=== PATIENT | male | born 1945 | race Caucasian/White ===

== ENCOUNTER → 2016-12-17 | Outpatient (CLI) | payer OTHER, BC ==
[~2016-12-17] MED LIST: AMLO-110 PO; ASPI81TA28 PO; BETAPOW NAE; CHOL100027 PO; CHOL200027 PO; CRS10 PEG; FENO1TAB PO; FURO-85 PO; HYT/2 PO; LEUP1INJ6 IM; METH500T3 PO; METO25TA56 PO; MULT-884 PO; OMEP20CA9 PO; TAMS0.4C38 PO; VITA400C15 PO
[2016-12-17 13:07] VITALS: BP 150/73; PULSE 51; TEMP 36.8; O2SAT 97
--- NOTE | 2016-12-17 16:56 | Radiation Oncology Follow-Up ---
Radiation Oncology Follow-Up Date of Visit Dec 17, 2016. Reason For Visit 6 month follow-up. Radiation Completion Date 11/16/15 Diagnosis (1) Prostate cancer Status: Resolved Onset Date: 07/26/2015 Location: both lobes of the prostate Histology Subtype: adenocarcinoma Stage: lll Permanent Comment: Rising PSA pre-pretreatment PSA 20 Status post ultrasound-guided biopsies completed 07/26/2015 Biopsy stage T2c Marti 5+5 Prostate Volume 28 mL Prostate density 0.714 Hormonal suppression for a total of 2 years Status post completion of radiation therapy utilizing IMRT/IGRT completed 2015 received 8100 cGy Last Edited By: Zaria Bonilla on Dec 17, 2016 16:42 History of Present Illness This is a 70-year-old gentleman with known aortic valvular disease. He is referred to us for discussion and consideration of radiation therapy for treatment of his apparently localized prostate cancer. The patient was noted to be having a rise in his PSA. His PSA had been rising and actually reasonable 14 in June. In view of his cardiac disease questions arose as to his optimal therapy. PSA was repeated as part of routine and had been found to have increased to 20 over one and a half months. With this in mind, the patient underwent ultrasound-guided biopsy of his prostate. That procedure returned prostate weighing 28.5 grams. There were multiple hypoechoic areas seen. Biopsies 6 from the right and 6 from the left were positive for adenocarcinoma consistent with a prostate primary. The patient though had a Marti 5+5 disease, found in some biopsies. This put him at high risk for local progression and metastasis. Coupled with his PSA arise, the patient's urologist felt he should be seen sooner rather than later with his disease. The patient underwent a workup that included a bone scan which was negative and an MRI of his pelvis that also was negative for metastatic disease. The MRI did not demonstrate extracapsular spread of his tumor. In talking with the patient, he had virtually noticed no symptoms from the disease. The patient has a longstanding history of nocturia 3-4 times a night. In reviewing his AUA score though it is 11. The patient is mostly satisfied in his lifestyle. He has had no blood in his urine, no burning or other symptoms locally. His bowels have been stable. The patient has also noted no new bone pain or other systemic manifestations of possible metastatic disease. Essentially, the patient is asymptomatic and was only alerted by his elevated PSA. With his cardiac issues he was not a surgical candidate. He was placed on hormone suppression due to the high [place]. He then returned to our office to undergo radiation therapy using external beam treatment. IMRT/IGRT. Interim History Following his last visit he did undergo cholecystectomy. He did well postoperatively. Steadily recovered from his surgery area he has had recheck PSAs ordered by Dr. Paz. He had a PSA 05/29/2016 that was 0.10. He had PSA 08/12/2016 that was less than 0.05. Since March he has developed intermittent rectal bleeding. This occurs approximately every 2 weeks. The amount is minimal and is bright red in color. When he was undergoing the cholecystectomy he had a CT of the abdomen area and he states he was told that he had radiation proctitis seen on the CT. He is being followed by [facility]. He has had a few follow-up visits. There is plans for a colonoscopy in the near future. He denies rectal pain or discomfort. He denies urgency. Today he completed an AUA score sheet and gave a level of 15. At his last visit the score was 11. He stated that the urinary symptoms had been higher and currently are improving. He completed expanded prostate cancer index composite for clinical practice and gave a score of 2 of 12 in urinary incontinence symptoms. He gave a score of one of 12 in urinary irritation symptoms. He gave a score of one of 12 in bowel symptoms. He gave a score of 10 of 12 in sexual symptoms. He gave a score of 5 of 12 in hormonal vitality symptoms. His total was 19 of 60. Allergies Coded Allergies: Amphotericin B (Verified Allergy, Unknown, DELIRIUM, 07/26/15) hallucinations,tremors,sweats Home Medications Scheduled Amlodipine (Norvasc), 10 MG PO DAILY Aspirin (Aspirin Ec), 81 MG PO DAILY Betamethasone Dipropionate (To (Betamethasone), 2 ML LISBETH BID Cholecalciferol (Vitamin D 1000 Unit), 1,000 INTER.UNIT PO DAILY Cholecalciferol (Vitamin D-3), 1 TAB PO DAILY Fenofibrate (Tricor), 160 MG PO DAILY Furosemide (Lasix), 20 MG PO DAILY Leuprolide Acetate (6 Month) (Lupron Depot), 1 APPLN IM [id number] Metoprolol Tartrate (Lopressor) (Lopressor), 12.5 MG PO DAILY Multiple Vitamin (Multi Vitamin Daily), 1 TAB PO DAILY Rosuvastatin Calcium (Crestor), 10 MG PEG HS Tamsulosin Hcl (Flomax), 1 CAP PO DAILY Terazosin Hcl (Hytrin), 2 MG PO DAILY Tocopheryl Acet,Dl-Alpha (Vitamin E), 400 INTER.UNIT PO DAILY Review of Systems Gastrointestinal: Symptoms: Rectal Bleeding GI Comments: States rectal bleeding is not all the time - every other week it happens Oral: Symptoms: No Problems Respiratory: Symptoms: WNL Urinary: Symptoms: Nocturia Comments: Nocturia x 4, freqency in AM due to lasix, see AUA & EPIC - symptoms better Skin: Symptoms: No Problems Physical Exam Vital Signs Date Time Temp Pulse Resp B/P Pulse Ox O2 Delivery O2 Flow Rate FiO2 12/17/16 13:07 36.8 51 16 150/73 97 Fatigue: None General Appearance: no apparent distress Eyes: normal inspection, PERRL ENT: normal ENT inspection, hearing grossly normal Neck: no adenopathy, thyroid normal Respiratory/Chest: lungs clear, no respiratory distress, no accessory muscle use Cardiovascular: regular rate, rhythm, no gallop, no murmur Abdomen: non tender, soft, no organomegaly Anal / Rectum: Deferred. Will be undergoing a colonoscopy. Extremities: no pedal edema Neurologic/Psychiatric: no motor/sensory deficits, alert, normal mood/affect Skin: warm/dry Lymphatic: no adenopathy Laboratory Studies PSAs as reviewed above. Assessment & Plan Plan: He will have a recheck PSA and office visit with Dr. Paz in February. He is being followed by [facility] and will be having a colonoscopy. We discussed radiation proctitis and options of treatment. At this time he feels that his bleeding is minimal. He does not wish to pursue any treatments such as cortisone enemas. I discussed that the leather sponger may discuss possible argon laser therapy. He was again stated that at this time he would not pursue any additional therapy. We discussed watching his diet to help keep his stool soft and prevent constipation. He did not wish to take any over-the- counter fiber product at this time. We did contemplate DEXA scanning had his last visit. I do not see that that was performed. We will call his primary care physician's office to see if he has had a DEXA scan in the past. If not we will plan to order a DEXA scan. Total Time In Follow-Up I spent 20 minutes to you to the patient performing examination. I spent 15 minutes reviewing information completing this note. Copy To Darius Lee D.O.; Bret Paz MD, Urology
== END | disposition home or self-care (01) ==
LOC: C.ONC 12:59
PROVIDERS: ATTEND Radiology Radiation Oncology
DX: Z08 Encounter for follow-up examination after completed treatment for malignant neoplasm (principal); Z92.3 Personal history of irradiation; Z85.46 Personal history of malignant neoplasm of prostate

== ENCOUNTER → 2017-11-17 | Outpatient (CLI) | payer OTHER, BC ==
[~2017-11-17] MED LIST changes: -METH500T3 PO; -OMEP20CA9 PO; +OPTIRAY 320 IV PRN
--- NOTE | 2017-11-17 10:40 | DIAGNOSTIC IMAGING REPORT ---
ABDOMEN AND PELVIS CT WITH IV CONTRAST CT DOSE: 799.70 mGy.cm HISTORY: C61 Neoplasm of prostate, malignant TECHNIQUE: Multiaxial CT images of the abdomen and pelvis were performed following the use of intravenous contrast. A dose lowering technique was utilized adhering to the principles of ALARA. COMPARISON STUDY: Pelvis MRI 08/10/2015. Bone scan 08/14/2015. FINDINGS: Mild dependent changes seen at the lung bases. Poststernotomy changes. There is a right total hip arthroplasty. No suspicious lytic or blastic osseous lesions. Degenerative changes seen within the lumbar spine. Small hiatus hernia. Cholecystectomy. The liver, spleen, left adrenal gland, and pancreas are unremarkable. Mild bilateral cortical renal scarring. No hydronephrosis. Calcifications within the right adrenal gland. No retroperitoneal lymphadenopathy. Moderate calcified plaque within the normal caliber abdominal aorta. Mild bladder wall thickening. No pelvic or inguinal lymphadenopathy. Mild thickening of the rectum. A few brachytherapy seeds seen within the prostate gland. Colonic diverticulosis. No evidence for bowel obstruction. Normal appendix. Incidental is made of a circumscribed 3 cm low-density lesion between the gastric fundus and the spleen. This is indeterminate but favors a cyst. IMPRESSION: 1. No evidence for metastatic disease within the abdomen or pelvis. 2. Mild thickening of the rectum consistent with a nonspecific proctitis. This could be due to post radiation changes. 3. There is also mild thickening of the bladder wall which could also be due to post radiation changes. 4. There is a 3 cm low-density lesion located between the gastric fundus and the spleen. This is indeterminate but favors a cyst and could represent a duplication cyst. Follow up is recommended to ensure stability of this suspected benign finding. Electronically signed by: Jacek Strange M.D. 11/17/2017 10:39 AM Dictated Date/Time: 11/17/2017 10:29 AM
--- NOTE | 2017-11-17 13:05 | DIAGNOSTIC IMAGING REPORT ---
BONE SCAN WHOLE BODY CLINICAL HISTORY: Prostate cancer. COMPARISON STUDY: Body bone scan August 14, [address] of the abdomen and pelvis performed earlier today. TECHNIQUE: 26.9 mCi of technetium 99m MDP was injected IV at 9:45 AM on November 17, 2017. 3 hours following injection, whole body imaging was performed in the anterior and posterior projections. FINDINGS: Expected soft tissue and renal uptake is present. A photopenic defect from a left knee arthroplasty is noted. Marked uptake within the right shoulder is unchanged and likely degenerative. A small focus of mild uptake within the left mid posterior aspect of the thoracic spine is unchanged. This is likely degenerative. Uptake within the wrists, hands, right knee and ankles as well as post is degenerative. Photopenic defect from a right hip arthroplasty is noted. Minimal uptake within the cervical spine is unchanged. This is degenerative. IMPRESSION: No scintigraphic evidence of skeletal metastatic disease. Electronically signed by: Delgado Baez M.D. 11/17/2017 1:04 PM Dictated Date/Time: 11/17/2017 12:58 PM
== END | disposition home or self-care (01) ==
LOC: C.NUCL 09:01
PROVIDERS: ATTEND Urology
DX: C61 Malignant neoplasm of prostate (principal)

== ENCOUNTER → 2017-12-18 | Outpatient (CLI) | payer OTHER, BC ==
[~2017-12-18] MED LIST changes: +CALCTAB7 PO; +FERR1TAB23 PO; -OPTIRAY 320 IV PRN; +PRAV20TA PO
[2017-12-18 12:59] VITALS: BP 131/79; PULSE 64; TEMP 36.7; O2SAT 94
--- NOTE | 2017-12-18 13:48 | Radiation Oncology Follow-Up ---
Radiation Oncology Follow-Up Date of Visit Dec 18, 2017. Reason For Visit Annual follow up Radiation Completion Date Hormonal suppression;IMRT 11/16/15 Diagnosis (1) Prostate cancer Status: Chronic Onset Date: 07/26/2015 Location: both lobes of the prostate Permanent Comment: Rising PSA pre-pretreatment PSA 20 Status post ultrasound-guided biopsies completed 07/26/2015 Biopsy stage T2c [place] 5+5 Prostate Volume 28 mL Prostate density 0.714 Hormonal suppression for a total of 2 years Status post completion of radiation therapy utilizing IMRT/IGRT completed 2015 received 8100 cGy Rising PSA, biochemical failure, PSA 10/13/2017 3.79 Hormone suppression restarted 10/22/2017 Lupron 45 mg IM Last Edited By: Zaria Bonilla on Dec 18, 2017 13:48 History of Present Illness This is a known to have aortic valvular disease. He is referred to us for discussion and consideration of radiation therapy for treatment of his apparently localized prostate cancer. The patient was noted to be having a rise in his PSA. His PSA had been rising and actually reasonable 14 in June. In view of his cardiac disease questions arose as to his optimal therapy. PSA was repeated as part of routine and had been found to have increased to 20 over one and a half months. With this in mind, the patient underwent ultrasound-guided biopsy of his prostate. That procedure returned prostate weighing 28.5 grams. There were multiple hypoechoic areas seen. Biopsies 6 from the right and 6 from the left were positive for adenocarcinoma consistent with a prostate primary. The patient though had a Marti 5+5 disease, found in some biopsies. This put him at high risk for local progression and metastasis. Coupled with his PSA arise, the patient's urologist felt he should be seen sooner rather than later with his disease. The patient underwent a workup that included a bone scan which was negative and an MRI of his pelvis that also was negative for metastatic disease. The MRI did not demonstrate extracapsular spread of his tumor. In talking with the patient, he had virtually noticed no symptoms from the disease. The patient has a longstanding history of nocturia 3-4 times a night. In reviewing his AUA score though it is 11. The patient is mostly satisfied in his lifestyle. He has had no blood in his urine, no burning or other symptoms locally. His bowels have been stable. The patient has also noted no new bone pain or other systemic manifestations of possible metastatic disease. Essentially, the patient is asymptomatic and was only alerted by his elevated PSA. With his cardiac issues he was not a surgical candidate. He was placed on hormone suppression due to the high [place]. He then returned to our office to undergo radiation therapy using external beam treatment. IMRT/IGRT. Radiation was completed 11/16/2015. He received 8100 cGy. He then went under replacement of the aortic valve. Interim History He has been followed with recheck PSAs. Unfortunately his PSA went up. He had a PSA 02/10/2017 that was less than 0.05. On 08/13/2017 the PSA was less than 0.05. On 10/13/2017 the PSA was 3.79. He was then placed on hormone suppression again. Lupron was given 10/22/2017. He received 45 mg. He stated that the suppression will be indefinite. After our last visit he did continue to have problems with rectal bleeding he was seen by [facility] physicians and was evaluated. He had a colonoscopy and then laser therapy. He only required one treatment. The bleeding has greatly improved and is occurring very rarely. With the Lupron therapy and he does have hot flashes once again. He unfortunately fell on 11/16/2017. He fell down 6 steps. He had a head injury. He is steadily recuperating. He is on iron therapy [place] [facility] [place] had a recheck PSA November 14, 2017 and that was less than 0.05. He gave an AUA score of 6. He completed expanded prostate cancer index composite for clinical practice and gave a score of one of 12 and urinary incontinence symptoms. He was score of 3 of 12 and urinary irritation symptoms. He was score of 0 of 12 and bowel symptoms. He gave a score of 11 of 12 in sexual symptoms. He gave a score of 4 of 12 and hormonal vitality symptoms. His total was 19 of 60. Allergies Coded Allergies: Amphotericin B (Verified Allergy, Unknown, DELIRIUM, 07/26/15) hallucinations,tremors,sweats Home Medications Scheduled Amlodipine (Norvasc), 10 MG PO DAILY Aspirin (Aspirin Ec), 81 MG PO DAILY Betamethasone Dipropionate (To (Betamethasone), 2 ML LISBETH BID Calcium Carbonate-Vitamin D W/ (Caltrate 600 Plus), 1 TAB PO DAILY Cholecalciferol (Vitamin D-3), 1 TAB PO DAILY Ferrous Sulfate (Iron), 1 TAB PO DAILY Furosemide (Lasix), 20 MG PO DAILY Leuprolide Acetate (6 Month) (Lupron Depot), 1 APPLN IM [id number] Multiple Vitamin (Multi Vitamin Daily), 1 TAB PO DAILY Pravastatin (Pravachol ), 20 MG PO DAILY Tamsulosin Hcl (Flomax), 1 CAP PO DAILY Terazosin Hcl (Hytrin), 2 MG PO DAILY Tocopheryl Acet,Dl-Alpha (Vitamin E), 400 INTER.UNIT PO DAILY Review of Systems Gastrointestinal: Symptoms: WNL GI Comments: Had laser for radiation proctitis w/improvement of rectal spotting; Oral: Symptoms: No Problems Respiratory: Symptoms: WNL Urinary: Symptoms: Nocturia, Frequency Comments: Q2 hr voids/night- not new w/RT;4 voids/night;Dribbles at end of void; Skin: Symptoms: No Problems Physical Exam Vital Signs Date Time Temp Pulse Resp B/P (MAP) Pulse Ox O2 Delivery O2 Flow Rate FiO2 12/18/17 12:59 36.7 64 20 131/79 94 Fatigue: None General Appearance: no apparent distress, + pertinent finding (mild erythema of the right frontal scalp. Healed laceration of the right eyebrow.) Eyes: normal inspection, EOMI ENT: normal ENT inspection, hearing grossly normal Neck: no adenopathy, thyroid normal Respiratory/Chest: lungs clear, no respiratory distress, no accessory muscle use Cardiovascular: regular rate, rhythm, no gallop, no murmur Abdomen: non tender, soft, no organomegaly Anal / Rectum: Normal sphincter tone. Prostate without nodules. No rectal masses no rectal bleeding. Dark stool due to iron therapy. Extremities: no pedal edema Neurologic/Psychiatric: no motor/sensory deficits, alert, normal mood/affect Skin: warm/dry Pain Management Patient Reports Pain: Yes Initial Pain Intensity: 2.0 Pain Management Plan He is recuperating from head injury. He does not require any pain management through our office. Laboratory Laboratory Results: were reviewed, and pertinent findings noted in HPI Laboratory Comments: Reviewed in the interim history. Pathology Pathology Results: not applicable Imaging Imaging Studies: not applicable Assessment & Plan Plan: Continue follow-up PSAs. He'll be having a recheck PSA in February. He has a follow-up we will with Dr. Paz. He'll continue hormonal suppression. We asked him to return to our office in 1 year. He may call if he has been question or concerns in the interim. Total Time In Follow-Up I spent 20 minutes speaking to the patient and performing examination. I spent 15 minutes reviewing information in completing this note. Copy To Darius Lee D.O.; Bret Paz MD, Urology
== END | disposition home or self-care (01) ==
LOC: C.ONC 12:51
PROVIDERS: ATTEND Physician Assistant Medical
DX: Z08 Encounter for follow-up examination after completed treatment for malignant neoplasm (principal); Z92.3 Personal history of irradiation; Z85.46 Personal history of malignant neoplasm of prostate

== ENCOUNTER 2020-12-15 08:03 | Inpatient (IN) ==
--- NOTE | 2020-11-21 11:22 | PAT Medication Instructions ---
Medication Instructions Date of Service November 21, 2020 Home Medications amlodipine 10 mg tablet 10 mg PO QAM aspirin 81 mg tablet,delayed release 81 mg PO QAM calcium carbonate 600 mg calcium (1,500 mg) tablet 600 mg PO QPM cholecalciferol (vitamin D3) 50 mcg (2,000 unit) tablet 2,000 units PO QAM ferrous sulfate 325 mg (65 mg iron) tablet 325 mg PO QAM furosemide 20 mg tablet 20 mg PO QAM multivitamin 1 tab PO QAM pravastatin 20 mg tablet 20 mg PO QPM terazosin 2 mg tablet 2 mg PO QPM vitamin E (dl, acetate) 400 unit capsule 400 units PO QPM tamsulosin 0.4 mg PO PM STOP taking 2 weeks before surgery vitamin E (dl, acetate) 400 unit capsule 400 units PO QPM DO NOT take the morning of surgery cholecalciferol (vitamin D3) 50 mcg (2,000 unit) tablet 2,000 units PO QAM ferrous sulfate 325 mg (65 mg iron) tablet 325 mg PO QAM furosemide 20 mg tablet 20 mg PO QAM multivitamin 1 tab PO QAM Take morning of surgery With a small sip of water, OTHERWISE NOTHING TO EAT OR DRINK AFTER MIDNIGHT: amlodipine 10 mg tablet 10 mg PO QAM aspirin 81 mg tablet,delayed release 81 mg PO QAM Take evening before surgery calcium carbonate 600 mg calcium (1,500 mg) tablet 600 mg PO QPM pravastatin 20 mg tablet 20 mg PO QPM terazosin 2 mg tablet 2 mg PO QPM tamsulosin 0.4 mg PO PM Other Notes If you have any questions please call us at [phone] or [phone] or [phone] or [phone]
--- NOTE | 2020-11-23 14:09 | Anesthesiology Consultation ---
Date of Service November 23, 2020 Assessment & Plan (1) Encounter for pre-operative examination: Chart Review Chart Review: Pending: Refer to Additional Notes / Consult section (pending surgeon ordered cardio clearance 11/28 and preop Covid testing ) and Patient seen in Pre Admission Testing Awaiting surgeon cardio clearance scheduled 11/28 - sent EKG for review. Pt received Moderna vaccine on 11/17/20. Scheduled for second vaccine after surgery. Per PAT appt on 11/23/20, patient denies any recent travel. No known Covid positive contacts or Covid related symptoms. Pt scheduled for preop Covid testing 12/08/20= will await results Teaching & Discussion Pre-Anesthesia Teaching/Discussion Notes: Instructed NPO after midnight before surgery,except medications with 15 cc of water. Medication instructions provided according to the PAT guidelines. History Surgery Operation Date: 12/15/20 10:05 Proposed Procedures p Posterior Fusion Instrumentation Spinal Cord Monitoring - Mohsen Quesada DO Height/Weight Height: 5 ft 2 in Weight: 81.1 kg Allergies Allergy/AdvReac Type Severity Reaction Status Date / Time amphotericin B Allergy Unknown DELIRIUM Verified 10/30/20 13:18 metoprolol AdvReac Intermediate Dizziness Verified 10/30/20 13:19 Medications Home Medications Medication Instructions Recorded Confirmed Last Taken amlodipine 10 mg tablet 10 mg PO QAM 12/21/19 10/30/20 06/09/20 aspirin 81 mg tablet,delayed 81 mg PO QAM 12/21/19 10/30/20 06/09/20 release calcium carbonate 600 mg calcium 600 mg PO QPM 12/21/19 10/30/20 Unknown (1,500 mg) tablet cholecalciferol (vitamin D3) 50 2,000 units PO QAM tab 12/21/19 10/30/20 06/09/20 mcg (2,000 unit) tablet ferrous sulfate 325 mg (65 mg 325 mg PO QAM tab 12/21/19 10/30/20 06/09/20 iron) tablet furosemide 20 mg tablet 20 mg PO QAM tab 12/21/19 10/30/20 06/09/20 multivitamin 1 tab PO QAM 12/21/19 10/30/20 06/09/20 pravastatin 20 mg tablet 20 mg PO QPM tab 12/21/19 10/30/20 Unknown terazosin 2 mg tablet 2 mg PO QPM tab 12/21/19 10/30/20 Unknown vitamin E (dl, acetate) 400 unit 400 units PO QPM 12/21/19 10/30/20 Unknown capsule tamsulosin 0.4 mg PO PM 10/30/20 10/30/20 Unknown Past Medical History Medical History (Updated 11/24/20 @ 14:24 by Natividad Garibay PA-C) Aortic stenosis S/p valve replacement- bovine heart valve- 2015. [facility] CAD (coronary artery disease) 2018 cath shows 40% mid LAD stenosis, 60% stenosis of D1 and ostial dominant Cx Hyperlipidemia Hypertension Lyme disease 2016- no residual issues Nausea and vomiting after administration of anesthetic agent Nocturia Osteoporosis Prostate CA Dx'ed 2014. S/p XRT and Lupron injections - no current issues Radiation proctitis Slow to wake up after anesthesia Slowing of urinary stream Stage 3 chronic kidney disease follows Dr. Lemons of [facility] Exercise / Class Metabolic Activity III < 4 Walking/Shop/Light housework (no chest pain or SOB with flat surface ambulation - limited activity due to LE issues from back pain ) Past Family History Family History Mother Cardiac disorder Diabetes Hypertension Father Cancer Malignant neoplasm of the esophagus Other No family history of adverse response to anesthesia No family history of bleeding disorder Past Surgical History Surgical History History of aortic valve replacement 2016 > [facility] (cow valve) History of cardiac cath several > [facility] no stents History of carpal tunnel release of both wrists History of cholecystectomy History of colonoscopy History of esophagogastroduodenoscopy (EGD) History of hip replacement right History of knee replacement left History of renal stent present History of sinus surgery History of tonsillectomy History of tooth extraction Past Anesthesia History No Hx of Anesthesia Complications (with exception to PONV and slow to wake (no hx of reintubation or ICU stay- just groggy) ) and No Family Hx of Anesthesia C omplications (with exception to sister- slow to wake- just groggy ) History of PONV No Hx of Motion Sickness and History of PONV Social History Smoking Status: Never smoker Do You Dip or Chew Tobacco: No Hx Alcohol Use: No Hx Substance Use: No substance use type: does not use Review of Systems Hx of possible DVT 1978- no issues since Hx of blood transfusion- s/p surgery Patient denies chest pain, shortness of breath at rest, reflux, cough, wheezing, palpitations. No hx of seizures, stroke, ND, apnea/snoring. Physical Exam Vital Signs VITALS BP 154/74 P 53 TEMP 97.6 SP02 98% RESP 16 Constitutional no acute distress ENMT Mouth: + small oral opening; no TMJ clicking Thyromental Distance: > or= 3.5 Finger Breadths (3.5) Mallampati Class: III Partial upper denture Missing bottom molars Neck + short neck and + limited neck extension (mild) Respiratory normal respiratory effort; no respiratory distress Auscultation: lungs clear to auscultation bilaterally; no wheezes Cardiovascular Rate/Rhythm: regular rate and regular rhythm Heart Sounds: + murmur (II-III/ murmur ) Vessels: + carotid bruit (presumed radiation from cardiac murmur ) Musculoskeletal Spine: no pain with cervical ROM Extremities: extremities normal to inspection Psychiatric Orientation: alert Testing Laboratory Results 11/23/20 14:56 11/23/20 14:56 PT 10.9 Seconds (9.0-12.0) 11/23/20 14:56 INR 1.0 (0.9-1.1) 11/23/20 14:56 APTT 27.3 Seconds (21.0-31.0) 11/23/20 14:56 Urine Color Yellow 11/23/20 Unknown Urine Appearance Clear (Clear) 11/23/20 Unknown Urine pH 5.0 (4.5-7.5) 11/23/20 Unknown Ur Specific [place] 1.012 (1.000-1.030) 11/23/20 Unknown Urine Protein Negative (Negative) 11/23/20 Unknown Urine Glucose (UA) Negative (Negative) 11/23/20 Unknown Urine Ketones Negative (Negative) 11/23/20 Unknown Urine Nitrite Negative (Negative) 11/23/20 Unknown Ur Leukocyte Esterase Negative (Negative) 11/23/20 Unknown Blood Type O Positive 11/23/20 14:56 Antibody Screen NEGATIVE 01/14/21 14:56 Electrocardiogram Date: 11/23/20 Findings: + SB @ (49bpm) PACs. ST&T wave abnormality, consider lateral ischemia. When compared to EKG from Jul 26, 2015= ST no longer elevated in anterior leads, QT has shortened per cardio. (Did send EKG for cardio to review at clearance appt 11/28/20) Chest X-Ray Date: 11/23/20 Findings: + NAD and + cardiomegaly (moderate ) Minimal linear left basilar opacity favors atelectasis. There is no consolidation. No pneumothorax or pleural effusion is noted. There is been no significant change in appearance of the chest. Echocardiogram Date: 03/30/19 EF: 60% LV Function: normal RWMA: + none Other Findings: + LVH (Concentric) and + diastolic dysfunction (Grade 2) Valvular Disease: + MR (Mild) Moderately dilated left atrium. Bioprosthetic aortic valve. Bioprosthesis shows peak and mean gradients of 34 mmHg and 17mmHg, with an EOA of 0.89 cm, consistent with normal bioprosthetic AVR gradients. Mild AR. Mildly dilated aortic root (4.1 cm) and ascending aorta (4.0 cm). Cardiac Catheterization Date: 05/07/19 Left Main = angiographically normal LAD =40% mid stenosis. First diagonal has 60% ostial stenosis. The rest of the vessel is angiographically normal LCx= 60% prox stenosis RCA= severe tortuosity- appears to be small nondominant vessel. Summary: Angiographically moderate two-vessel occlusive coronary disease. Normal size aortic root. No significant AR. Given present coronary anatomy patient should be managed medically aggressive risk factor modification should be maintained in close, follow-up should be done.
--- NOTE | 2020-11-23 15:25 | XRay Report ---
XR chest Pre-admission PA/Lat CLINICAL HISTORY: Preoperative evaluation. COMPARISON STUDY: Chest radiograph July 26, 2015. FINDINGS: Median sternotomy wires, prosthetic aortic valve and and cholecystectomy clips are noted. T here is no pneumothorax or pleural effusion. Moderate cardiac megaly is noted without evidence for pu lmonary edema. Minimal linear left basilar opacity favors atelectasis. There is no consolidation. No pneumothorax or pleural effusion is noted. There is been no significant change in appearance of the c hest. IMPRESSION: No acute cardiopulmonary findings. Cardiomegaly. ACT 112: Negative or not required by law. Electronically signed by: Delgado Baez M.D. 11/23/2020 3:23 PM
[2020-11-23 15:34] LABS: Basophils # (auto) 0.03 K/uL (0-0.2); Basophils % (auto) 0.6 %; Eosinophils # (auto) 0.17 K/uL (0-0.5); Eosinophils % (auto) 3.2 %; Hematocrit (blood only) 33.8 % (42-52); Hemoglobin 11.1 g/dL (14.0-18.0); Immature Granulocytes # (auto) 0.01 K/uL (0.00-0.02); Immature Granulocytes % (auto) 0.2 %; Lymphocytes # (auto) 0.92 K/uL (1.2-3.4); Lymphocytes % (auto) 17.5 %; Mean Corpuscular Hemoglobin 30.3 pg (25-34); Mean Corpuscular Hgb Conc 32.8 g/dL (32-36); Mean Corpuscular Volume 92.3 fL (80-100); Mean Platelet Volume 11.2 fL (7.4-10.4); Monocytes # (auto) 0.55 K/uL (0.11-0.59); Monocytes % (auto) 10.5 %; Neutrophils # (auto) 3.58 K/uL (1.4-6.5); Platelet Count 210 K/uL (130-400); RDW Standard Deviation 43.6 fL (36.4-46.3); Red Blood Count 3.66 M/uL (4.7-6.1); White Blood Count 5.26 K/uL (4.8-10.8)
[2020-11-23 15:35] LABS: Appearance Urine Clear (Clear); Bilirubin Urine Negative (Negative); Blood Urine Negative (Negative); Color Urine Yellow; Glucose Urine UA Negative (Negative); Ketones Urine Negative (Negative); Leukocyte Esterase Urine Negative (Negative); Nitrite Urine Negative (Negative); Protein Urine Negative (Negative); Specific Gravity Urine 1.012 (1.000-1.030); Urobilinogen Urine Negative (Negative)
[2020-11-23 15:46] LABS: BUN Creatinine Ratio 21.9 (10-20); Calcium 9.1 mg/dl (8.5-10.1); Creatinine Clr Calc Pharmacy 40.2 ml/min; Est GFR (African American) 54.3; Est GFR (Non-African American) 46.8; Potassium 4.1 mmol/L (3.5-5.1)
[2020-11-23 15:58] LABS: Partial Thromboplastin Time 27.3 Seconds (21.0-31.0); Prothrombin Time 10.9 Seconds (9.0-12.0)
--- NOTE | 2020-11-24 13:47 | Electrocardiogram Report ---
Test Reason : Blood Pressure : / mmHG Vent. Rate : 049 BPM Atrial Rate : 042 BPM P-R Int : 000 ms QRS Dur : 088 ms QT Int : 414 ms P-R-T Axes : 000 074 -20 degrees QTc Int : 373 ms Sinus bradycardia Premature atrial complexes Abnormal ECG When compared with ECG of 26-JUL-2015 16:02, ST no longer elevated in Anterior leads QT has shortened Confirmed by Chuck Rangel ([id number]) on 11/24/2020 1:46:46 PM Referred By: Mohsen Quesada Confirmed By:Chuck Rangel
[~2020-12-15 08:03] MED LIST changes: +ACETAMINOPHEN 500 MG TAB PO SCH; -AMLO-110 PO; -ASPI81TA28 PO; -BETAPOW NAE; -CALCTAB7 PO; -CHOL100027 PO; -CHOL200027 PO; -CRS10 PEG; +CeleBREX 200 MG CAP PO SCH; -FENO1TAB PO; -FERR1TAB23 PO; -FURO-85 PO; +GABAPENTIN 300 MG CAP PO SCH; -HYT/2 PO; -LEUP1INJ6 IM; +LR 15ML/HR IV SCH; -METO25TA56 PO; -MULT-884 PO; -PRAV20TA PO; -TAMS0.4C38 PO; -VITA400C15 PO; +ceFAZolin 2000MG 2,000 MG/15 ML SYR IV SCH
[2020-12-15] MEDS ORDERED: PROPOFOL IV EMULSION 10 MG/ML 20 ML VIAL IV ONE (08:16)
[2020-12-15] MEDS ORDERED: LIDOCAINE HCL 2% 2 ML VIAL/AMP(20MG/ML) INFIL ONE (08:16)
[2020-12-15] MEDS ORDERED: SUCCINYLCHOLINE CHLORIDE 20 MG/ML 10 ML VIAL IV ONE (08:16)
[2020-12-15] MEDS ORDERED: ROCURONIUM BROMIDE 10 MG/ML 5 ML VIAL IV ONE (08:16)
[2020-12-15] MEDS ORDERED: fentaNYL citrate 100 MCG/2 ML VIAL ONE (08:16)
[2020-12-15] MEDS ORDERED: ONDANSETRON INJ 2 MG/ML 2 ML VIAL ONE (08:16)
[2020-12-15] MEDS ORDERED: MIDAZOLAM HCL 1 MG/ML 2ML VIAL ONE (08:17)
--- NOTE | 2020-12-15 09:25 | History & Physical Bridge Note ---
Date of Service December 15, 2020 History & Physical Bridge Note I have examined the patient, reviewed the History & Physical and in the interval since the performance of the History & Physical I have noted the following changes of clinical significance: no changes noted
--- NOTE | 2020-12-15 09:26 | History & Physical Report ---
Date of Service December 15, 2020 Assessment & Plan (1) Neurogenic claudication due to lumbar spinal stenosis: Admission and Anticipated Discharge Date Admission Date: L2-S1 decompression fusion History of Present Illness Chief Complaint: Back and bilateral leg pain Primary Care Provider: Darius Lee DO This is a 75-year-old male presents with chronic persistent back and leg pain. After failing course of nonoperative care is here for surgical invention. Allergies Allergy/AdvReac Type Severity Reaction Status Date / Time amphotericin B Allergy Unknown DELIRIUM Verified 12/15/20 08:27 metoprolol AdvReac Intermediate Dizziness Verified 12/15/20 08:27 Home Medications Medication Instructions Recorded Confirmed Type amlodipine 10 mg tablet 10 mg PO QAM 12/21/19 10/30/20 History aspirin 81 mg tablet,delayed 81 mg PO QAM 12/21/19 10/30/20 History release calcium carbonate 600 mg calcium 600 mg PO QPM 12/21/19 12/15/20 History (1,500 mg) tablet cholecalciferol (vitamin D3) 50 2,000 units PO QAM tab 12/21/19 12/15/20 History mcg (2,000 unit) tablet ferrous sulfate 325 mg (65 mg 325 mg PO QAM tab 12/21/19 12/15/20 History iron) tablet furosemide 20 mg tablet 20 mg PO QAM tab 12/21/19 12/15/20 History multivitamin 1 tab PO QAM 12/21/19 12/15/20 History pravastatin 20 mg tablet 20 mg PO QPM tab 12/21/19 12/15/20 History terazosin 2 mg tablet 2 mg PO QPM tab 12/21/19 12/15/20 History vitamin E (dl, acetate) 400 unit 400 units PO QPM 12/21/19 12/15/20 History capsule tamsulosin 0.4 mg PO PM 10/30/20 12/15/20 History Past Med/Surg History Medical History (Updated 12/15/20 @ 09:26 by Mohsen Quesada DO) Aortic stenosis S/p valve replacement- bovine heart valve- 2015. Follows with Dr. Al of [facility] CAD (coronary artery disease) 2018 cath shows 40% mid LAD stenosis, 60% stenosis of D1 and ostial dominant Cx Diabetes Type II- diet controlled per records Hyperlipidemia Hypertension Lyme disease 2016- no residual issues Nocturia Osteoporosis Prostate CA Dx'ed 2014. S/p XRT and Lupron injections - no current issues Radiation proctitis Slowing of urinary stream Stage 3 chronic kidney disease follows Dr. Lemons of [facility] Surgical History History of aortic valve replacement 2016 > [facility] (cow valve) History of cardiac cath several > last one 2 yrs ago at [facility]> no stents History of carpal tunnel release of both wrists History of cholecystectomy History of colonoscopy History of esophagogastroduodenoscopy (EGD) History of hip replacement right History of knee replacement left History of renal stent present History of sinus surgery History of tonsillectomy History of tooth extraction Nausea and vomiting after administration of anesthetic agent Slow to wake up after anesthesia Family History Mother Cardiac disorder Diabetes Hypertension Father Cancer Malignant neoplasm of the esophagus Other No family history of adverse response to anesthesia No family history of bleeding disorder Social History Smoking Status: Never smoker Second Hand Exposure: No; Do You Dip or Chew Tobacco: No; Tobacco Cessation Education Requested by Patient: No Hx Alcohol Use: No Hx Substance Use: No Preferred Language: Nigerien Communication Ability: Effective Vegetable Sorter Required: No Beliefs That Will Affect Care: None marital status: Current Living Situation: Spouse Other Information That Helps Us Care for You: No Feels Safe at Home: Yes Safety Concerns: Feels Safe At This Time Assistive Devices: Cane and Denture - Upper Assistive Devices Comment: UPPER PARTIAL Physical Exam Physical Exam: Patient is alert and oriented Heart regular rate and rhythm Lungs clear to auscultation Results & Data ([facility]) Vital Signs (Past 12 Hours) Vital Signs Temp Pulse Resp BP Pulse Ox 12/15/20 08:40 36.6 C 56 L 20 183/79 H 99
[2020-12-15] MEDS ORDERED: BACITRACIN INJ 50,000 UNIT VIAL ONE (09:40)
[2020-12-15] MEDS ORDERED: BUPIVACAINE/EPINEPHRINE 0.5% MPF 1:200,000 30 ML VIAL ONE (09:40)
[2020-12-15] MEDS ORDERED: NALOXONE HCL 0.4 MG/1 ML VIAL/CARP IV PRN ×2 (10:15→15:37)
[2020-12-15] MEDS ORDERED: ONDANSETRON INJ 2 MG/ML 2 ML VIAL IV PRN (10:15)
[2020-12-15] MEDS ORDERED: FLUMAZENIL 0.1 MG/1 ML 10 ML VIAL IV PRN (10:15)
[2020-12-15] MEDS ORDERED: ePHEDrine sulfate 50 MG/ML AMP IV PRN (10:15)
[2020-12-15] MEDS ORDERED: PROMETHAZINE HCL 12.5 MG in SODIUM CHLORIDE 0.9% 50 ML IV PRN ×2 (10:15→15:37)
[2020-12-15] MEDS ORDERED: HYDROmorphone INJ 0.5 MG/0.5 ML SYR IV PRN ×2 (10:15→15:37)
[2020-12-15] MEDS ORDERED: fentaNYL citrate 100 MCG/2 ML VIAL IV PRN (10:15)
[2020-12-15] MEDS ORDERED: ATROPINE SULFATE 0.1 MG/ML 10ML SYR IV PRN (10:15)
[2020-12-15] MEDS ORDERED: LABETALOL HCL IV 5 MG/ML 20ML IV PRN (10:15)
[2020-12-15] MEDS ORDERED: ePHEDrine sulfate 50 MG/ML AMP ONE (10:38)
[2020-12-15] MEDS ORDERED: GLYCOPYRROLATE 0.2 MG/ML VIAL ONE (10:38)
[2020-12-15] MEDS ORDERED: PHENYLEPHRINE HCL 10 MG/ML VIAL ONE (10:38)
[2020-12-15] MEDS ORDERED: PHENYLEPHRINE 100MCG/ML 5ML SYR ONE ×2 (10:38→14:36)
[2020-12-15] MEDS ORDERED: FLOSEAL HEMOSTATIC MATRIX 10ML TOP ONE (12:16)
--- NOTE | 2020-12-15 12:28 | Operative Report ---
Post Operative Report Pre & Post Diagnosis Operation Date: 12/15/20 09:35 Pre-Op Diagnosis: Spinal Stenosis, Lumbar Region with Neurogenic Post-Op Diagnosis: Spinal Stenosis, Lumbar Region with Neurogenic Operation Date: 12/15/20 10:05 <No data on this case meets the specified criteria> I identified the patient and participated in the time-out.: Yes Procedure Operation Date: 12/15/20 09:35 Actual Procedures #1 lumbar decompression with bilateral medial facetectomies and foraminotomies L2-3, L3-4, L4-5 and L5-S1 peer #2 posterior spinal fusion L2-3, L3-4, L4-5 and L5-S1. #3 placement posterior segmental instrumentation L2-S1. #4 placement locally harvested morselized autograft in the posterior lateral gutters. #5 placement infuse collagen sponge, master graft in the posterior lateral gutters. Surgeon Mohsen Quesada, Clinical Dental Technician Tj Barone Estimated Blood Loss 400 Findings See Below Patient is 5 foot 2 inches tall weighing over 81 kg with a BMI in excess of 32. The patient's body habitus did add increased technical difficulty requiring her deepest retractors longus instruments in order to perform his procedure. This at least 50% increase to the operative time. Specimens None Indications This is a 75-year-old male who presents above-mentioned diagnosis after failing course of nonoperative care is here for the above-mentioned procedure. Description of Procedure Patient was met with identified informed consent obtained. Patient was then taken to the operative suite underwent a patient placed in a prone position the Abilio table atop Camron frame. All bony prominences well-padded eyes inspected to ensure no external pressure placed upon the. This point the lumbar spine is prepped and draped in a sterile fashion. Sharp dissection with the assistance of Bovie cautery was performed down to and exposing the lamina and transverse processes of L2-L3-L4 L5 and sacral ala bilaterally. From caudal cephalad fashion complete laminectomy of L5 L4 L3 and L2 was performed including bilateral medial facetectomies and foraminotomies addressing severe spinal stenosis. Pedicle screws were then placed in L2 L3-L4-L5 and S1 levels bilaterally with assistance of fluoroscopy and the process karrie locked in position. The transverse processes of L2 L3-L4-L5 and sacral ala were then burred to subcortical bleeding bone. Infuse collagen sponge mass graft local autograft was placed in the posterior gutters. 15 round ELTON drain inserted. The incision was then closed with 1 Vicryl to fascia 2-0 Vicryl subcutaneously and 4 Monocryl for final skin closure. Steri-Strip sterile dressings placed. Patient will continue PACU stable condition. Please note spinal cord monitoring was utilized at the procedure no changes noted. Lastly Tj Barone was present at the entire procedure involved the patient positioning complex portions of the surgery and final skin closure. I attest to the content of the Intraoperative Record and any orders documented therein. Any exceptions are noted below.
--- NOTE | 2020-12-15 13:03 | Fluoroscopy Report ---
FL lumbar spine 2-3V HISTORY: 75 years-old Male L2-S1 DECOMPRESSION/FUSION/INTERBODY chronic low back pain COMPARISON: Lumbar spine radiographs 06/09/2020 TECHNIQUE: 4 spot fluoroscopic images of the lumbar spine were obtained utilizing 45.9 seconds fluoro scopy time FINDINGS: Laminectomy with posterior interbody karrie and screw fusion at L2-S1. The hardware appears intact. Sati sfactory alignment without acute fracture or subluxation. Multilevel disc space narrowing with spondy litic spurring and facet arthrosis redemonstrated. No unexpected opaque foreign body. Right hip total joint arthroplasty. IMPRESSION: Fluoroscopic assistance as above. ACT 112: Negative or not required by law. The above report was generated using voice recognition software. It may contain grammatical, syntax o r spelling errors. Electronically signed by: Evin Mcdaniel M.D. 12/15/2020 1:01 PM
[2020-12-15 13:21] LABS: Hematocrit (blood only) 26.6 % (42-52)
[2020-12-15] MEDS ORDERED: ALBUMIN HUMAN 5% 12.5 GM/250 ML VIAL IV ONE (14:22)
[2020-12-15] MEDS ORDERED: ALBUMIN 5% 250 ML IV ONE ×2 (14:33→15:03)
[2020-12-15] MEDS ORDERED: PHENYLEPHRINE 100MCG/ML 5ML SYR IV PRN (14:34)
--- NOTE | 2020-12-15 15:17 | Anesthesiology Progress Note ---
Date of Service December 15, 2020 Anesthesia Post Procedure Vital Signs Vital Signs: Temp Pulse Pulse Resp BP BP BP 12/15/20 15:10 55 L 17 111/48 L 12/15/20 15:00 55 L 15 114/47 L 106/48 L 12/15/20 14:50 53 L 15 103/47 L 102/48 L 12/15/20 14:40 52 L 15 105/47 L 12/15/20 14:30 51 L 15 101/48 L 95/54 L 12/15/20 14:20 50 L 12 93/46 L 89/50 L 12/15/20 14:10 51 L 14 84/42 L 83/46 L 12/15/20 14:00 49 L 12 112/52 L 105/49 L 12/15/20 13:50 50 L 16 121/53 L 121/61 12/15/20 13:40 52 L 12 120/54 L 135/62 12/15/20 13:30 54 L 11 L 100/46 L 99/59 L 12/15/20 13:20 55 L 10 L 109/50 L 109/54 L 12/15/20 13:10 57 L 11 L 111/56 L 106/52 L 12/15/20 13:07 58 L 15 115/54 L 12/15/20 13:05 58 L 11 L 12/15/20 12:55 36.1 C L 66 11 L 65/39 L 12/15/20 08:40 36.6 C 56 L 20 183/79 H Pulse Ox 12/15/20 15:10 92 12/15/20 15:00 91 12/15/20 14:50 93 12/15/20 14:40 93 12/15/20 14:30 98 12/15/20 14:20 87 L 12/15/20 14:10 100 12/15/20 14:00 93 12/15/20 13:50 100 12/15/20 13:40 100 12/15/20 13:30 100 12/15/20 13:20 100 12/15/20 13:10 100 12/15/20 13:07 100 12/15/20 13:05 100 12/15/20 12:55 100 12/15/20 08:40 99 Pain Intensity Lower Back: Pain Intensity: 4 Transfer of Care Handoff Completed per policy Notes Mental Status: alert / awake / arousable Patient Amnestic to Procedure: Yes Nausea / Vomiting: adequately controlled Pain: adequately controlled Airway Patency, RR, SpO2: stable & adequate BP & HR: stable & adequate Hydration State: stable & adequate Anesthetic Complications: no major complications apparent
[2020-12-15] MEDS ORDERED: traMADol HCL 50 MG TABLET PO PRN (15:37)
[2020-12-15] MEDS ORDERED: DO NOT ADMINISTER FLU VACCINE PRN (15:37)
[2020-12-15] MEDS ORDERED: MAGNESIUM HYDROXIDE SUSP 30 ML UDC PO PRN (15:37)
[2020-12-15] MEDS ORDERED: hydrOXYzine HCl 25 MG TAB PO PRN (15:37)
[2020-12-15] MEDS ORDERED: SOD PHOSPHATE/SOD BIPHOSPHATE ENEMA 132 ML BTL PR PRN (15:37)
[2020-12-15] MEDS ORDERED: ALUMINUM/MAGNESIUM SUSP 30 ML UDC PO PRN (15:37)
[2020-12-15] MEDS ORDERED: METOCLOPRAMIDE HCL INJ 5 MG/ML 2 ML VIAL IV PRN (15:37)
[2020-12-15] MEDS ORDERED: FAMOTIDINE 20 MG TAB PO PRN (15:37)
[2020-12-15] MEDS ORDERED: DO NOT ADMINISTER PNEUMOCOCCAL VACCINE PRN (15:37)
[2020-12-15] MEDS ORDERED: LORazepam 0.5 MG TAB PO PRN (15:37)
[2020-12-15] MEDS ORDERED: HYDROmorphone INJ 1 MG/ML SYRINGE IV PRN (15:37)
[2020-12-15] MEDS ORDERED: ACETAMINOPHEN 500 MG TAB PO PRN (15:37)
[2020-12-15] MEDS ORDERED: ACETAMINOPHEN 1,000 MG/100 ML VIAL IV PRN (15:37)
[2020-12-15] MEDS ORDERED: LORazepam 0.5 MG/1 ML VIAL IV PRN (15:37)
[2020-12-15] MEDS ORDERED: GLUCOSE 40% GEL 15 GM TUBE PO PRN (17:14)
[2020-12-15] MEDS ORDERED: GLUCAGON FOR INJ 1 MG VIAL SQ PRN (17:14)
[2020-12-15] MEDS ORDERED: DEXTROSE 50% 50 ML SYRINGE IV PRN (17:14)
[2020-12-15] MEDS ORDERED: GLUCOSE 10 TABS/TUBE PO PRN (17:14)
[2020-12-15] MEDS ORDERED: CARBOHYDRATES FOR HYPOGLYCEMIA PO PRN (17:14)
--- NOTE | 2020-12-15 17:29 | Hospitalist Consultation ---
Date of Consultation December 15, 2020 Assessment & Plan (1) Neurogenic claudication due to lumbar spinal stenosis: - POD#0 L2-S1 decompression and fusion by Dr. Quesada - activity and wound care orders as per ortho - pain control with bowel regimen - PT/OT - monitor H/H for acute blood loss anemia and transfuse blood products PRN - EBL 400 cc, recheck H&H this evening (2) Hypotension: -Discussed with anesthesia, patient required phenylephrine i ntraoperatively and albumin 5% postoperatively -Patient now hemodynamically stable -Likely multifactorial secondary to blood loss and anesthesia -Hold home amlodipine, continue furosemide to start in the morning due to history of valvular disease (3) CAD (coronary artery disease): -Nonobstructive per cardiac cath 2018 -Appears stable, no reports of chest pain -Continue aspirin and statin (4) Diabetes: -Diet controlled -No recent A1c on file, check with a.m. labs -NovoLog per protocol while hospitalized (5) History of aortic valve replacement: -Bioprosthetic (6) Stage 3 chronic kidney disease: -Baseline creatinine ~1.4 -Monitor renal functions (7) DVT prophylaxis: -TEDs/SCDs as per spine Ortho Thank you for this consultation. We will follow the patient with you during their hospital stay. You can reach a member of the [facility] Hospitalist Team 02/06 via pager @ [phone]. Supervising Physician Co-Signing Physician Notes Patient is a 75-year-old male with history of coronary artery disease, bioprosthetic aortic valve, diabetes mellitus, CKD stage III and other medical problems was seen and examined postop after having lumbar decompression, fusion surgery for lumbar spinal stenosis with neurogenic claudication. Patient complained of dizziness, nausea, low back pain at surgical site postop. He denied any chest pain, dyspnea, vomiting, abdominal pain. He was found to be hypotensive intraoperatively. Also noted to be bradycardic, and transiently hypoxic requiring 2 L of supplemental oxygen to maintain saturations. Currently saturating 95% on room air. Please review HPI for complete details. Physical Exam: Vitals signs as noted above General Appearance:Moderately built and nourished, no apparent distress Head: normocephalic, Atraumatic Eyes: normal inspection, EOMI, + Pallor Neck: supple, Trachea midline Respiratory/Chest: Normal breath sounds, CTA, No accessory muscle use Cardiovascular: S1, S2, + murmur, +Vertical surgical scar well healed Abdomen/GI:Soft, Non tender, Bowel sounds present Back: Surgical site in dressing, + Drain Extremities/Musculoskelatal:normal inspection, no edema Neurologic/Psych:AAOX3, grossly no focal neurological deficits Skin: normal color, warm S/P L2-S1: Decompression fusion surgery for neurogenic claudication/lumbar spinal stenosis Pain Control, Activity, Wound Care, DVT Px as per primary team Monitor for post OP anemia Bowel regimen to prevent constipation Gentle IV fluids given hypotension postoperatively Monitor for volume status Transfuse PRBCs if needed Hold Amlodipine for now DM II Diet Controlled Update HbA1C Insulin therapy while hospitalized Transient Hypoxia Currently saturating well on room air Consider CXR if needed I personally reviewed the record. Patient is interviewed and examined at bedside. Patient's care is coordinated with Dee Sanders NP. Please refer to the documentation above for details of patient's presentation and for discussion of other issues. History of Present Illness Reason for Consultation: Postop medical management Requesting Physician: Dr. Quesada Attending Physician: Dr. Irving History of Present Illness 75-year-old male with PMH nonobstructive CAD, history of bioprosthetic aortic valve replacement, diet-controlled diabetes, CKD stage III, prostate cancer s/p radiation, HTN, and other problems listed below who is status post L2-S1 decompression and fusion today by Dr. Quesada. Intra and postoperatively, patient had hypotension. This was discussed with anesthesia who reports that patient received phenylephrine and albumin 5% in PACU. Patient is now hemodynamically stable. He reports nausea however no abdominal pain or vomiting. He has some mild dizziness however no syncopal event. Denies chest pain or shortness of breath. Reports 6/10 back pain. No numbness, tingling, weakness to lower extremities. Allergies Allergy/AdvReac Type Severity Reaction Status Date / Time amphotericin B Allergy Unknown DELIRIUM Verified 12/15/20 08:27 metoprolol AdvReac Intermediate Dizziness Verified 12/15/20 08:27 Home Medications Medication Instructions Recorded Confirmed Type amlodipine 10 mg tablet 10 mg PO QAM 12/21/19 10/30/20 History aspirin 81 mg tablet,delayed 81 mg PO QAM 12/21/19 10/30/20 History release calcium carbonate 600 mg calcium 600 mg PO QPM 12/21/19 12/15/20 History (1,500 mg) tablet cholecalciferol (vitamin D3) 50 2,000 units PO QAM tab 12/21/19 12/15/20 History mcg (2,000 unit) tablet ferrous sulfate 325 mg (65 mg 325 mg PO QAM tab 12/21/19 12/15/20 History iron) tablet furosemide 20 mg tablet 20 mg PO QAM tab 12/21/19 12/15/20 History multivitamin 1 tab PO QAM 12/21/19 12/15/20 History pravastatin 20 mg tablet 20 mg PO QPM tab 12/21/19 12/15/20 History terazosin 2 mg tablet 2 mg PO QPM tab 12/21/19 12/15/20 History vitamin E (dl, acetate) 400 unit 400 units PO QPM 12/21/19 12/15/20 History capsule tamsulosin 0.4 mg PO PM 10/30/20 12/15/20 History Patient History Medical History Aortic stenosis S/p valve replacement- bovine heart valve- 2015. Follows with Dr. Al of [facility] CAD (coronary artery disease) 2018 cath shows 40% mid LAD stenosis, 60% stenosis of D1 and ostial dominant Cx Chronic pansinusitis Diabetes Type II- diet controlled per records Hyperlipidemia Hypertension Lyme disease 2015- no residual issues Osteoporosis Prostate CA Dx'ed 2014. S/p XRT and Lupron injections - no current issues Prostate cancer (07/26/15) "Rising PSA pre-pretreatment PSA 20 Status post ultrasound-guided biopsies completed 07/26/2015 Biopsy stage T2c [place] 5+5 Prostate Volume 28 mL Prostate density 0.714 Hormonal suppression for a total of 2 years Status post completion of radiation therapy utilizing IMRT/IGRT completed 11/16/2015 received 8100 cGy Rising PSA, biochemical failure, PSA 10/13/2017 3.79 Hormone suppression restarted 10/22/2017 Lupron 45 mg IM" On 12/17/16 16:42 Zaria Bonilla wrote "Rising PSA pre-pretreatment PSA 20 Status post ultrasound-guided biopsies completed 07/26/2015 Biopsy stage T2c [place] 5+5 Prostate Volume 28 mL Prostate density 0.714 Hormonal suppression for a total of 2 years Status post completion of radiation therapy utilizing IMRT/IGRT completed 11/16/2015 received 8100 cGy" On 11/20/15 19:00 Zaria Peralta Bonilla wrote "Rising PSA pre-pretreatment PSA 20 Status post ultrasound-guided biopsies completed 07/26/2015 Biopsy stage T2c [place] 5+5 Prostate Volume 28 mL Prostate density 0.714 Hormonal suppression Status post completion of radiation therapy utilizing IMRT/IGRT completed 11/16/2015 received 8100 cGy" Radiation proctitis Stage 3 chronic kidney disease follows Dr. Lemons of [facility] History History of aortic valve replacement 2016 > [facility] (cow valve) History of cardiac cath several > last one 2 yrs ago at [facility]> no stents History of carpal tunnel release of both wrists History of cholecystectomy History of colonoscopy History of esophagogastroduodenoscopy (EGD) History of hip replacement right History of knee replacement left History of renal stent present History of sinus surgery History of tonsillectomy History of tooth extraction Nausea and vomiting after administration of anesthetic agent Slow to wake up after anesthesia Family History Mother Cardiac disorder Diabetes Hypertension Father Cancer Malignant neoplasm of the esophagus Other No family history of adverse response to anesthesia No family history of bleeding disorder Social History Smoking Status: Never smoker Second Hand Exposure: No; Do You Dip or Chew Tobacco: No; Tobacco Cessation Education Requested by Patient: No Hx Alcohol Use: No Hx Substance Use: No Preferred Language: Nepali Communication Ability: Effective Head Neck Surgeon Required: No Beliefs That Will Affect Care: None marital status: Current Living Situation: Spouse Other Information That Helps Us Care for You: No Feels Safe at Home: Yes Safety Concerns: Feels Safe At This Time Assistive Devices: Cane and Denture - Upper Assistive Devices Comment: UPPER PARTIAL Review of Systems Review of Systems: ROS per HPI, all other systems reviewed and negative Physical Exam Physical Exam: Please refer to Dr. Irving's addendum for physical exam Results & Data Results & Data ([facility]) Vital Signs (Past 12 Hours) Vital Signs Temp Pulse Pulse Resp BP BP BP 12/15/20 16:28 36.3 C L 56 L 18 105/62 12/15/20 16:00 36.4 C L 55 L 16 102/59 L 12/15/20 15:30 36.4 C L 54 L 16 113/61 12/15/20 15:10 55 L 17 111/48 L 12/15/20 15:00 55 L 15 114/47 L 106/48 L 12/15/20 14:50 53 L 15 103/47 L 102/48 L 12/15/20 14:40 52 L 15 105/47 L 12/15/20 14:30 51 L 15 101/48 L 95/54 L 12/15/20 14:20 50 L 12 93/46 L 89/50 L 12/15/20 14:10 51 L 14 84/42 L 83/46 L 12/15/20 14:00 49 L 12 112/52 L 105/49 L 12/15/20 13:50 50 L 16 121/53 L 121/61 12/15/20 13:40 52 L 12 120/54 L 135/62 12/15/20 13:30 54 L 11 L 100/46 L 99/59 L 12/15/20 13:20 55 L 10 L 109/50 L 109/54 L 12/15/20 13:10 57 L 11 L 111/56 L 106/52 L 12/15/20 13:07 58 L 15 115/54 L 12/15/20 13:05 58 L 11 L 12/15/20 12:55 36.1 C L 66 11 L 65/39 L 12/15/20 08:40 36.6 C 56 L 20 183/79 H Pulse Ox 12/15/20 16:28 100 12/15/20 16:00 100 12/15/20 15:30 98 12/15/20 15:10 92 12/15/20 15:00 91 12/15/20 14:50 93 12/15/20 14:40 93 12/15/20 14:30 98 12/15/20 14:20 87 L 12/15/20 14:10 100 12/15/20 14:00 93 12/15/20 13:50 100 12/15/20 13:40 100 12/15/20 13:30 100 02/05/21 13:20 100 12/15/20 13:10 100 12/15/20 13:07 100 12/15/20 13:05 100 12/15/20 12:55 100 12/15/20 08:40 99 Laboratory Results Short CBC 12/15/20 Range/Units 13:02 Hgb 9.0 L (14.0-18.0) g/dL Hct 26.6 L (42-52) %
[2020-12-15] MEDS: ceFAZolin 2000MG 2,000 MG/15 ML SYR IV SCH (18:45)
[2020-12-15] MEDS: SODIUM CHLORIDE 0.9% 1000ML 1,000 ML IV SCH (19:26)
[2020-12-15 20:04] LABS: Hematocrit (blood only) 23.7 % (42-52); Hemoglobin 7.8 g/dL (14.0-18.0)
[2020-12-15] MEDS ORDERED: ACETAMINOPHEN 325 MG TAB PO STA (20:21)
[2020-12-15] MEDS ORDERED: SODIUM CHLORIDE 0.9% 250 ML IV PRN (20:21)
[2020-12-15] MEDS: TAMSULOSIN HCL 0.4 MG CAP PO SCH (20:46)
[2020-12-15] MEDS: PRAVASTATIN SOD 20 MG TAB PO SCH (20:46)
[2020-12-15] MEDS: TERAZOSIN HCL 1 MG CAP PO SCH (20:46)
[2020-12-15] MEDS: TOCOPHERYL, DL-ALPHA 400 UNITS CAP PO SCH (20:46)
[2020-12-15] MEDS: INSULIN ASPART 100 UNITS/ML 3 ML PEN SC SCH (20:46)
[2020-12-15] MEDS: CALCIUM 600MG + VIT D 400 IU TAB PO SCH (20:46)
[2020-12-15] MEDS: DOCUSATE SODIUM/SENNA 50/8.6MG TAB PO SCH (20:46)
[2020-12-15] MEDS ORDERED: COUGH DROP (SUGAR FREE) LOZ 24 LOZ/1 BOX BUCCAL ONE (20:56)
[2020-12-15] MEDS ORDERED: FUROSEMIDE 20 MG in SYRINGE 0 ML IV ONE (23:55)
[2020-12-16] MEDS: ceFAZolin 2000MG 2,000 MG/15 ML SYR IV SCH (03:35)
[2020-12-16] MEDS: POLYETHYLENE (MIRALAX) 17 GM PACK PO SCH ×4 (06:20→23:39)
[2020-12-16 06:41] LABS: Basophils # (auto) 0.01 K/uL (0-0.2); Basophils % (auto) 0.1 %; Eosinophils # (auto) 0.18 K/uL (0-0.5); Eosinophils % (auto) 2.7 %; Hematocrit (blood only) 27.5 % (42-52); Hemoglobin 9.4 g/dL (14.0-18.0); Immature Granulocytes # (auto) 0.01 K/uL (0.00-0.02); Immature Granulocytes % (auto) 0.1 %; Lymphocytes # (auto) 0.67 K/uL (1.2-3.4); Mean Corpuscular Hemoglobin 30.5 pg (25-34); Mean Corpuscular Hgb Conc 34.2 g/dL (32-36); Mean Corpuscular Volume 89.3 fL (80-100); Mean Platelet Volume 11.1 fL (7.4-10.4); Monocytes # (auto) 0.89 K/uL (0.11-0.59); Monocytes % (auto) 13.2 %; Neutrophils # (auto) 4.96 K/uL (1.4-6.5); Neutrophils % (auto) 73.9 %; Platelet Count 134 K/uL (130-400); RDW Coefficient of Variation 14.5 % (11.5-14.5); RDW Standard Deviation 46.9 fL (36.4-46.3); Red Blood Count 3.08 M/uL (4.7-6.1); White Blood Count 6.72 K/uL (4.8-10.8)
[2020-12-16 07:34] LABS: BUN Creatinine Ratio 16.7 (10-20); Calcium 8.9 mg/dl (8.5-10.1); Creatinine Clr Calc Pharmacy 36.8 ml/min; Est GFR (African American) 48.2; Est GFR (Non-African American) 41.6; Potassium 4.1 mmol/L (3.5-5.1)
[2020-12-16 08:02] LABS: Estimated Average Glucose 126 mg/dl
[2020-12-16] MEDS: CHOLECALCIFEROL 1,000 UNITS 25 MCG TAB PO SCH (08:08)
[2020-12-16] MEDS: FERROUS SULFATE 325 MG TAB PO SCH (08:09)
[2020-12-16] MEDS: MULTIVITAMIN TAB PO SCH (08:09)
[2020-12-16] MEDS: FUROSEMIDE 20 MG TAB PO SCH (08:10)
[2020-12-16] MEDS: ASPIRIN 81 MG ECTAB PO SCH (08:10)
--- NOTE | 2020-12-16 08:10 | Hospitalist Progress Note ---
Date of Service December 16, 2020 Assessment & Plan (1) Neurogenic claudication due to lumbar spinal stenosis: - POD#1 L2-S1 decompression and fusion by Dr. Quesada - activity and wound care orders as per ortho - pain control with bowel regimen - PT/OT - monitor H/H for acute blood loss anemia and transfuse blood products PRN (2) Hypotension: -Discussed with anesthesia, patient required phenylephrine intraoperatively and albumin 5% postoperatively -Patient now hemodynamically stable -Likely multifactorial secondary to blood loss and anesthesia -Hold home amlodipine, continue furosemide to start in the morning due to history of valvular disease (3) CAD (coronary artery disease): -Nonobstructive per cardiac cath 2018 -Appears stable, no reports of chest pain -Continue aspirin and statin (4) Diabetes: -Diet controlled -No recent A1c on file, check with a.m. labs -NovoLog per protocol while hospitalized (5) History of aortic valve replacement: -Bioprosthetic (6) Stage 3 chronic kidney disease: -Baseline creatinine ~1.4 -Monitor renal functions -Gentle IVFs (7) DVT prophylaxis: -TEDs/SCDs as per spine Ortho Resume Post Op Care per Surgery Protocol Incentive Spirometry 10x per Hour Resume Relative Home Meds Where Appropriate PT/OT with appropriate fall precautions Transition from IV to PO Pain control DVT Prophylaxis Per Surgery Protocol Monitor Daily Labs ROS-No Headache, No Visual Changes, No Nausea, No Vomiting, No Fever, No Chills, No Neck Pain or Stiffness, No Chest Pain, No Palpitations, No SOB, No OSEGUERA, No Cough, No Sputum, No Wheezing, No Abdominal Pain, No Diarrhea, No Hematemesis, No Hemoptysis, No Unexpected Weight Loss, No Flank pain, No Melena, No Hematochezia, No Frequency, No Urgency, No Burning, No Hematuria, No Rashes, No Diaphoresis. Appetite is Normal Physical Exam Gen-AAO x 3, NAD, Afebrile, Drain in place Head-NCAT, EOMI, PERRLA, Anicteric Sclera, No Posterior Pharyngeal Erythema Neck-Supple, No JVD, No Thyromegaly, No Masses, No LAD, No Bruits Lungs-Clear to Auscultation Bilaterally, No Rales, No Rhonchi, No Wheezing, No Crepitus Chest-No S4, +S1, +S2, No S3, No Murmurs, No Rubs, No Gallops, No Ectopy Abdomen-Soft, Bowel Sounds Present, Non Tender, Non Distended, No Hepatomegaly, No Splenomegaly, No Palpable Masses, No Rebound, No Rigidity, No Guarding Musculoskeletal-Full Range of Motion Bilaterally, No CVAT Extremities-No Cyanosis, No Clubbing, No Edema Nuero-Cranial Nerves II-XII grossly intact, Motor WNL, DTRs WNL, Strength WNL, Non Focal Psych-Normal Mood Admission and Anticipated Discharge Date Admission Date: December 15, 2020 Results & Data Results & Data ([facility]) Vital Signs (Past 12 Hours) Vital Signs Temp Pulse Pulse Resp BP BP Pulse Ox 12/16/20 07:09 36.5 C 55 L 20 155/69 H 96 12/16/20 05:07 36.6 C 148/76 H 12/16/20 02:37 36.4 C L 56 L 18 172/96 H 97 12/16/20 02:11 36.8 C 53 L 16 177/82 H 96 12/16/20 01:11 36.4 C L 55 L 18 160/88 H 93 12/16/20 00:41 36.4 C L 58 L 20 137/70 91 12/16/20 00:26 36.4 C L 58 L 18 145/82 H 98 12/16/20 00:06 36.4 C L 56 L 18 147/79 H 96 12/15/20 23:39 36.8 C 56 L 20 153/75 H 96 12/15/20 23:10 36.5 C 57 L 18 156/78 H 98 12/15/20 22:10 36.4 C L 54 L 18 115/65 96 12/15/20 21:40 36.4 C L 53 L 18 127/79 98 12/15/20 21:25 36.3 C L 57 L 18 124/77 97 12/15/20 21:05 36.3 C L 59 L 18 125/70 97
--- NOTE | 2020-12-16 08:56 | Orthopedic Progress Note ---
Date of Service December 16, 2020 Assessment & Plan (1) Neurogenic claudication due to lumbar spinal stenosis: Pt is POD#1 PSF L2-S1. Will maintain ELTON drain. DVT prophylaxis is in the form of TEDS/SCDs. Continue with pain control. We will start physical therapy today. Continue to follow H/H. Admission and Anticipated Discharge Date Admission Date: December 15, 2020 Supervising Physician Co-Signing Physician Notes Dr. Mohsen Quesada Subjective Pt is POD#1 L2-S1 PSF. He is currently on tele floor. H/H were low last evening. Improved today(9.4/27.5). States he feels better today. Denies CP, SOB, heart palpitations, dizziness. He has an extensive cardiac history. He states back pain is modest and controlled. Denies leg pain. ELTON output last shift was 110cc. No other complaints. Review of Systems Review of Systems: All systems reviewed & are unremarkable except as noted in HPI & below Physical Exam Physical Exam: A&Ox3 NAD lumbar dressing C/D/I lower extremity strength 5/5 calves soft and NT b/l Constitutional: average body habitus, cooperative and comfortable Eyes: normal visual kent by confrontation ENMT: external ear and nose normal, oropharynx normal Neck: normal visual inspection Respiratory: normal respiratory effort Cardiovascular: Extremities: normal capillary refill Gastrointestinal (Abdomen): Inspection/Auscultation: abdomen normal to inspection Musculoskeletal: Extremities: extremities normal to inspection and strength 5/5 throughout Skin: no rashes, warm and dry Neurologic: PERRL, EOMI, accommodation nl, no face palsy, no dysarthria nor mal touch/pain/proprioception and moves all extremities Psychiatric: A+Ox3, euthymic affect Results & Data ([facility]) Vital Signs (Past 12 Hours) Vital Signs Temp Pulse Pulse Resp BP BP Pulse Ox 12/16/20 07:09 36.5 C 55 L 20 155/69 H 96 12/16/20 05:07 36.6 C 148/76 H 12/16/20 02:37 36.4 C L 56 L 18 172/96 H 97 12/16/20 02:11 36.8 C 53 L 16 177/82 H 96 12/16/20 01:11 36.4 C L 55 L 18 160/88 H 93 12/16/20 00:41 36.4 C L 58 L 20 137/70 91 12/16/20 00:26 36.4 C L 58 L 18 145/82 H 98 12/16/20 00:06 36.4 C L 56 L 18 147/79 H 96 12/15/20 23:39 36.8 C 56 L 20 153/75 H 96 12/15/20 23:10 36.5 C 57 L 18 156/78 H 98 12/15/20 22:10 36.4 C L 54 L 18 115/65 96 12/15/20 21:40 36.4 C L 53 L 18 127/79 98 12/15/20 21:25 36.3 C L 57 L 18 124/77 97 12/15/20 21:05 36.3 C L 59 L 18 125/70 97
[2020-12-16] MEDS ORDERED: amLODIPine BESYLATE 5 MG TAB PO SCH (09:00)
[2020-12-16] MEDS: INSULIN ASPART 100 UNITS/ML 3 ML PEN SC SCH ×4 (09:06→20:43)
[2020-12-16] MEDS: oxyCODONE HCL IR 5 MG TAB (IMMEDIATE RELEASE) PO PRN ×2 (09:52→17:43)
[2020-12-16] MEDS: ONDANSETRON INJ 2 MG/ML 2 ML VIAL IV PRN ×2 (09:52→17:41)
[2020-12-16] MEDS: SODIUM CHLORIDE 0.9% 1000ML 1,000 ML IV SCH ×3 (11:00→22:20)
[2020-12-16] MEDS: TOCOPHERYL, DL-ALPHA 400 UNITS CAP PO SCH (20:39)
[2020-12-16] MEDS: TAMSULOSIN HCL 0.4 MG CAP PO SCH (20:39)
[2020-12-16] MEDS: TERAZOSIN HCL 1 MG CAP PO SCH (20:40)
[2020-12-16] MEDS: DOCUSATE SODIUM/SENNA 50/8.6MG TAB PO SCH (20:40)
[2020-12-16] MEDS: CALCIUM 600MG + VIT D 400 IU TAB PO SCH (20:40)
[2020-12-16] MEDS: PRAVASTATIN SOD 20 MG TAB PO SCH (20:40)
[2020-12-17 01:49] LABS: Basophils # (auto) 0.02 K/uL (0-0.2); Basophils % (auto) 0.2 %; Eosinophils # (auto) 0.45 K/uL (0-0.5); Eosinophils % (auto) 4.9 %; Hematocrit (blood only) 27.1 % (42-52); Immature Granulocytes # (auto) 0.02 K/uL (0.00-0.02); Immature Granulocytes % (auto) 0.2 %; Lymphocytes # (auto) 0.96 K/uL (1.2-3.4); Lymphocytes % (auto) 10.5 %; Mean Corpuscular Hemoglobin 30.1 pg (25-34); Mean Corpuscular Volume 90.6 fL (80-100); Mean Platelet Volume 10.5 fL (7.4-10.4); Monocytes % (auto) 16.4 %; Neutrophils # (auto) 6.19 K/uL (1.4-6.5); Neutrophils % (auto) 67.8 %; Platelet Count 135 K/uL (130-400); RDW Coefficient of Variation 14.7 % (11.5-14.5); Red Blood Count 2.99 M/uL (4.7-6.1); White Blood Count 9.14 K/uL (4.8-10.8)
[2020-12-17 02:07] LABS: Alanine Aminotransferase 17 U/L (12-78); Albumin Level 2.7 gm/dl (3.4-5.0); Aspartate Aminotransferase 34 U/L (15-37); Blood Urea Nitrogen 26 mg/dl (7-18); Carbon Dioxide 28 mmol/L (21-32); Chloride 107 mmol/L (98-107); Creatinine Clr Calc Pharmacy 38.7 ml/min; Est GFR (African American) 51.3; Est GFR (Non-African American) 44.2; Glucose 154 mg/dl (70-99); Potassium 4.7 mmol/L (3.5-5.1); Sodium 139 mmol/L (136-145)
[2020-12-17 02:12] LABS: Albumin Globulin Ratio 1.1 (0.9-2); Alkaline Phosphatase 61 U/L (45-117); Bilirubin,Total 0.3 mg/dl (0.2-1); Globulin 2.4 gm/dl (2.5-4.0); Total Protein 5.1 gm/dl (6.4-8.2); Troponin I < 0.015 ng/ml (0-0.045)
[2020-12-17 02:14] LABS: Mean Corpuscular Hgb Conc 33.2 g/dL (32-36)
[2020-12-17] MEDS ORDERED: ATROPINE SULFATE 0.1 MG/ML 5ML SYR IV ONE (02:17)
[2020-12-17] MEDS ORDERED: COUGH DROP (SUGAR FREE) LOZ 24 LOZ/1 BOX BUCCAL ONE (02:20)
[2020-12-17 05:56] LABS: Basophils # (auto) 0.02 K/uL (0-0.2); Basophils % (auto) 0.2 %; Eosinophils # (auto) 0.29 K/uL (0-0.5); Eosinophils % (auto) 3.3 %; Hematocrit (blood only) 27.1 % (42-52); Immature Granulocytes # (auto) 0.01 K/uL (0.00-0.02); Immature Granulocytes % (auto) 0.1 %; Lymphocytes # (auto) 0.61 K/uL (1.2-3.4); Mean Corpuscular Hgb Conc 33.2 g/dL (32-36); Mean Corpuscular Volume 90.3 fL (80-100); Mean Platelet Volume 11.1 fL (7.4-10.4); Monocytes # (auto) 1.18 K/uL (0.11-0.59); Monocytes % (auto) 13.6 %; Neutrophils # (auto) 6.57 K/uL (1.4-6.5); Neutrophils % (auto) 75.8 %; Platelet Count 129 K/uL (130-400); RDW Coefficient of Variation 14.6 % (11.5-14.5); White Blood Count 8.68 K/uL (4.8-10.8)
[2020-12-17] MEDS: POLYETHYLENE (MIRALAX) 17 GM PACK PO SCH ×3 (06:34→19:23)
[2020-12-17] MEDS ORDERED: ALBUT/IPRATROP 3MG/0.5MG NEB 3 ML VIAL NEB STA (07:23)
--- NOTE | 2020-12-17 07:43 | Hospitalist Progress Note ---
Date of Service December 17, 2020 Assessment & Plan (1) Neurogenic claudication due to lumbar spinal stenosis: - POD#2 L2-S1 decompression and fusion by Dr. Quesada - activity and wound care orders as per ortho - pain control with bowel regimen - PT/OT - monitor H/H for acute blood loss anemia and transfuse blood products PRN -Symptomatic Bradycardia, Transfer to ICU, Cards and CC eval (2) Hypotension: -Patient required phenylephrine intraoperatively and albumin 5% postoperatively -Patient now hemodynamically stable -Likely multifactorial secondary to blood loss and anesthesia -Hold home amlodipine, continue furosemide to start in the morning due to history of valvular disease (3) CAD (coronary artery disease): -Nonobstructive per cardiac cath 2019 -Appears stable, no reports of chest pain -Continue aspirin and statin (4) Diabetes: -Diet controlled -No recent A1c on file, check with a.m. labs -NovoLog per protocol while hospitalized (5) History of aortic valve replacement: -Bioprosthetic (6) Stage 3 chronic kidney disease: -Baseline creatinine ~1.4 -Monitor renal functions -Gentle IVFs (7) DVT prophylaxis: -TEDs/SCDs as per spine Ortho Resume Post Op Care per Surgery Protocol Incentive Spirometry 10x per Hour Resume Relative Home Meds Where Appropriate PT/OT with appropriate fall precautions Transition from IV to PO Pain control DVT Prophylaxis Per Surgery Protocol Monitor Daily Labs Transferring to ICU Symptomatic Bradycardia-Needed Yg periop for low HR ROS-No Headache, No Visual Changes, No Nausea, No Vomiting, No Fever, No Chills, No Neck Pain or Stiffness, No Chest Pain, No Palpitations, No SOB, No OSEGUERA, No Cough, No Sputum, No Wheezing, No Abdominal Pain, No Diarrhea, No Hematemesis, No Hemoptysis, No Unexpected Weight Loss, No Flank pain, No Melena, No Hematochezia, No Frequency, No Urgency, No Burning, No Hematuria, No Rashes, No Diaphoresis. Appetite is Normal, c/o of near syncope Physical Exam Gen-AAO x 3, Weak and Pale, Afebrile, Drain in place Head-NCAT, EOMI, PERRLA, Anicteric Sclera, No Posterior Pharyngeal Erythema Neck-Supple, No JVD, No Thyromegaly, No Masses, No LAD, No Bruits Lungs-Clear to Auscultation Bilaterally, No Rales, No Rhonchi, No Wheezing, No Crepitus Chest-No S4, +S1, +S2, No S3, No Murmurs, No Rubs, No Gallops, No Ectopy Abdomen-Soft, Bowel Sounds Present, Non Tender, Non Distended, No Hepatomegaly, No Splenomegaly, No Palpable Masses, No Rebound, No Rigidity, No Guarding Musculoskeletal-Full Range of Motion Bilaterally, No CVAT Extremities-No Cyanosis, No Clubbing, No Edema Nuero-Cranial Nerves II-XII grossly intact, Motor WNL, DTRs WNL, Strength WNL, Non Focal Psych-Normal Mood Admission and Anticipated Discharge Date Admission Date: December 15, 2020 Results & Data Results & Data ([facility]) Vital Signs (Past 12 Hours) Vital Signs Temp Pulse Pulse Resp BP BP Pulse Ox 12/17/20 07:20 37 C 54 L 20 108/68 97 12/17/20 03:00 37.0 C 50 L 18 156/81 H 98 12/17/20 02:51 48 L 156/81 H 12/17/20 02:21 48 L 169/84 H 12/17/20 01:41 45 L 129/85 99 12/17/20 01:32 42 L 98/54 L 93 12/17/20 01:28 39 L 90/49 L 12/17/20 01:26 36 L 56/26 L 12/17/20 01:19 52 L 91/53 L 92 12/16/20 23:21 36.8 C 53 L 18 127/73 95
[2020-12-17] MEDS: INSULIN ASPART 100 UNITS/ML 3 ML PEN SC SCH ×4 (08:59→21:39)
[2020-12-17] MEDS: SODIUM CHLORIDE 0.9% 1000ML 1,000 ML IV SCH ×2 (09:01→22:29)
[2020-12-17] MEDS: FERROUS SULFATE 325 MG TAB PO SCH (09:02)
[2020-12-17] MEDS: ASPIRIN 81 MG ECTAB PO SCH (09:02)
[2020-12-17] MEDS: MULTIVITAMIN TAB PO SCH (09:02)
[2020-12-17] MEDS: CHOLECALCIFEROL 1,000 UNITS 25 MCG TAB PO SCH (09:02)
[2020-12-17] MEDS: FUROSEMIDE 20 MG TAB PO SCH (09:04)
--- NOTE | 2020-12-17 09:06 | Critical Care Consultation ---
Date of Consultation December 17, 2020 Assessment & Plan (1) Bradycardia with 31-40 beats per minute: Reason Critically Ill: Symptomatic bradycardia PLAN: Neuro: Pain control per spine surgery Resp: Tolerating room air CV: Symptomatic bradycardia Coronary artery disease Hypertension -Cardiology consulted History aortic valve replacement Heme: Postoperative anemia DVT prophylaxis: Deferred to spinal surgery Endocrine: ICU hyperglycemia protocol Vascular access: Peripheral IVs Code Status: Full code Disposition: Critical care will sign off at this time (2) History of aortic valve replacement: (3) Diabetes: (4) CAD (coronary artery disease): History of Present Illness Reason for Consultation: Symptomatic bradycardia Attending Physician: Mohsen Quesada DO History of Present Illness Patient is a 75-year-old male who is postop day 1 secondary to lumbar spinal fusion who had an episode of symptomatic bradycardia into the 30s while on the floor. He was dizzy and lightheaded. Currently he denies chest pain or shortness of breath and feels much improved. He has pacer pads on but is not actively pacing any is actually hypertensive. Allergies Allergy/AdvReac Type Severity Reaction Status Date / Time amphotericin B Allergy Unknown DELIRIUM Verified 12/15/20 08:27 metoprolol AdvReac Intermediate Dizziness Verified 12/15/20 08:27 Home Medications Medication Instructions Recorded Confirmed Type amlodipine 10 mg tablet 10 mg PO QAM 12/21/19 10/30/20 History aspirin 81 mg tablet,delayed 81 mg PO QAM 12/21/19 10/30/20 History release calcium carbonate 600 mg calcium 600 mg PO QPM 12/21/19 12/15/20 History (1,500 mg) tablet cholecalciferol (vitamin D3) 50 2,000 units PO QAM tab 12/21/19 12/15/20 History mcg (2,000 unit) tablet ferrous sulfate 325 mg (65 mg 325 mg PO QAM tab 12/21/19 12/15/20 History iron) tablet furosemide 20 mg tablet 20 mg PO QAM tab 12/21/19 12/15/20 History multivitamin 1 tab PO QAM 12/21/19 12/15/20 History pravastatin 20 mg tablet 20 mg PO QPM tab 12/21/19 12/15/20 History terazosin 2 mg tablet 2 mg PO QPM tab 12/21/19 12/15/20 History vitamin E (dl, acetate) 400 unit 400 units PO QPM 12/21/19 12/15/20 History capsule tamsulosin 0.4 mg PO PM 10/30/20 12/15/20 History Patient History Medical History Aortic stenosis S/p valve replacement- bovine heart valve- 2015. Follows with Dr. Al of [facility] CAD (coronary artery disease) 2018 cath shows 40% mid LAD stenosis, 60% stenosis of D1 and ostial dominant Cx Chronic pansinusitis Diabetes Type II- diet controlled per records Hyperlipidemia Hypertension Lyme disease 2016- no residual issues Osteoporosis Prostate CA Dx'ed 2014. S/p XRT and Lupron injections - no current issues Prostate cancer (07/26/15) "Rising PSA pre-pretreatment PSA 20 Status post ultrasound-guided biopsies completed 07/26/2015 Biopsy stage T2c Marti 5+5 Prostate Volume 28 mL Prostate density 0.714 Hormonal suppression for a total of 2 years Status post completion of radiation therapy utilizing IMRT/IGRT completed 11/16/2015 received 8100 cGy Rising PSA, biochemical failure, PSA 10/13/2017 3.79 Hormone suppression restarted 10/22/2017 Lupron 45 mg IM" On 12/17/16 16:42 Zaria Bonilla wrote "Rising PSA pre-pretreatment PSA 20 Status post ultrasound-guided biopsies completed 07/26/2015 Biopsy stage T2c Marti 5+5 Prostate Volume 28 mL Prostate density 0.714 Hormonal suppression for a total of 2 years Status post completion of radiation therapy utilizing IMRT/IGRT completed 11/16/2015 received 8100 cGy" On 11/20/15 19:00 Zaria Bonilla wrote "Rising PSA pre-pretreatment PSA 20 Status post ultrasound-guided biopsies completed 07/26/2015 Biopsy stage T2c Marti 5+5 Prostate Volume 28 mL Prostate density 0.714 Hormonal suppression Status post completion of radiation therapy utilizing IMRT/IGRT completed 11/16/2015 received 8100 cGy" Radiation proctitis Stage 3 chronic kidney disease follows Dr. Lemons of [facility] History History of aortic valve replacement 2016 > [facility] (cow valve) History of cardiac cath several > last one 2 yrs ago at [facility] [place]> no stents History of carpal tunnel release of both wrists History of cholecystectomy History of colonoscopy History of esophagogastroduodenoscopy (EGD) History of hip replacement right History of knee replacement left History of renal stent present History of sinus surgery History of tonsillectomy History of tooth extraction Nausea and vomiting after administration of anesthetic agent Slow to wake up after anesthesia Family History Mother Cardiac disorder Diabetes Hypertension Father Cancer Malignant neoplasm of the esophagus Other No family history of adverse response to anesthesia No family history of bleeding disorder Social History Smoking Status: Never smoker Second Hand Exposure: No; Do You Dip or Chew Tobacco: No; Tobacco Cessation Education Requested by Patient: No Hx Alcohol Use: No Hx Substance Use: No Preferred Language: Montserratian Communication Ability: Effective Escort Service Attendant Required: No Beliefs That Will Affect Care: None marital status: Current Living Situation: Spouse Other Information That Helps Us Care for You: No Feels Safe at Home: Yes Safety Concerns: Feels Safe At This Time Assistive Devices: Denture - Upper Assistive Devices Comment: UPPER PARTIAL Review of Systems Review of Systems: All systems reviewed & are unremarkable except as noted in Subjective As per the HPI Physical Exam Physical Exam: General: Alert. nontoxic. Skin: Warm, dry, Head: Atraumatic Ears, nose, mouth and throat: airway patent Cardiovascular: Normal peripheral perfusion Respiratory: no respiratory distress Gastrointestinal: Non distended Musculoskeletal: No deformity Results & Data Results & Data ([facility]) Vital Signs (Past 12 Hours) Vital Signs Temp Pulse Pulse Resp BP BP Pulse Ox 12/17/20 07:41 41 L 18 98 12/17/20 07:20 37 C 54 L 20 108/68 97 12/17/20 03:00 37.0 C 50 L 18 156/81 H 98 12/17/20 02:51 48 L 156/81 H 12/17/20 02:21 48 L 169/84 H 12/17/20 01:41 45 L 129/85 99 12/17/20 01:32 42 L 98/54 L 93 12/17/20 01:28 39 L 90/49 L 12/17/20 01:26 36 L 56/26 L 12/17/20 01:19 52 L 91/53 L 92 12/16/20 23:21 36.8 C 53 L 18 127/73 95 Laboratory Results 12/17/20 12/17/20 12/17/20 Range/Units 07:09 05:33 01:40 WBC 8.68 (4.8-10.8) K/uL RBC 3.00 L (4.7-6.1) M/uL Hgb 9.0 L (14.0-18.0) g/dL Hct 27.1 L (42-52) % MCV 90.3 (80-100) fL MCH 30.0 (25-34) pg MCHC 33.2 (32-36) g/dL RDW Std Deviation 48.0 H (36.4-46.3) fL RDW Coeff of Ninfa 14.6 H (11.5-14.5) % Plt Count 129 L (130-400) K/uL MPV 11.1 H (7.4-10.4) fL Immature Gran % (Auto) 0.1 % Neut % (Auto) 75.8 % Lymph % (Auto) 7.0 % Louisa % (Auto) 13.6 % Eos % (Auto) 3.3 % Baso % (Auto) 0.2 % Neut # (Auto) 6.57 H (1.4-6.5) K/uL Lymph # (Auto) 0.61 L (1.2-3.4) K/uL Louisa # (Auto) 1.18 H (0.11-0.59) K/uL Eos # (Auto) 0.29 (0-0.5) K/uL Baso # (Auto) 0.02 (0-0.2) K/uL Immature Gran # (Auto) 0.01 (0.00-0.02) K/uL Sodium 139 (136-145) mmol/L Potassium 4.7 (3.5-5.1) mmol/L Chloride 107 (98-107) mmol/L Carbon Dioxide 28 (21-32) mmol/L Anion Gap 4.0 (3-11) BUN 26 H (7-18) mg/dl Creatinine 1.51 H (0.6-1.4) mg/dl Est Cr Clr Drug Dosing 38.7 ml/min Est GFR ( Amer) 51.3 Est GFR (Non-Af Amer) 44.2 BUN/Creatinine Ratio 17.0 (10-20) Glucose 154 H (70-99) mg/dl POC Glucose 175 H (70-99) mg/dl Calcium 8.0 L (8.5-10.1) mg/dl Total Bilirubin 0.3 (0.2-1) mg/dl AST 34 (15-37) U/L ALT 17 (12-78) U/L Alkaline Phosphatase 61 (45-117) U/L Troponin I < 0.015 (0-0.045) ng/ml Total Protein 5.1 L (6.4-8.2) gm/dl Albumin 2.7 L (3.4-5.0) gm/dl Globulin 2.4 L (2.5-4.0) gm/dl Albumin/Globulin Ratio 1.1 (0.9-2) 12/17/20 12/17/20 12/16/20 Range/Units 01:40 01:20 20:29 WBC 9.14 (4.8-10.8) K/uL RBC 2.99 L (4.7-6.1) M/uL Hgb 9.0 L (14.0-18.0) g/dL Hct 27.1 L (42-52) % MCV 90.6 (80-100) fL MCH 30.1 (25-34) pg MCHC 33.2 (32-36) g/dL RDW Std Deviation 49.0 H (36.4-46.3) fL RDW Coeff of Ninfa 14.7 H (11.5-14.5) % Plt Count 135 (130-400) K/uL MPV 10.5 H (7.4-10.4) fL Immature Gran % (Auto) 0.2 % Neut % (Auto) 67.8 % Lymph % (Auto) 10.5 % Louisa % (Auto) 16.4 % Eos % (Auto) 4.9 % Baso % (Auto) 0.2 % Neut # (Auto) 6.19 (1.4-6.5) K/uL Lymph # (Auto) 0.96 L (1.2-3.4) K/uL Louisa # (Auto) 1.50 H (0.11-0.59) K/uL Eos # (Auto) 0.45 (0-0.5) K/uL Baso # (Auto) 0.02 (0-0.2) K/uL Immature Gran # (Auto) 0.02 (0.00-0.02) K/uL Sodium (136-145) mmol/L Potassium (3.5-5.1) mmol/L Chloride (98-107) mmol/L Carbon Dioxide (21-32) mmol/L Anion Gap (3-11) BUN (7-18) mg/dl Creatinine (0.6-1.4) mg/dl Est Cr Clr Drug Dosing ml/min Est GFR ( Amer) Est GFR (Non-Af Amer) BUN/Creatinine Ratio (10-20) Glucose (70-99) mg/dl POC Glucose 180 H 177 H (70-99) mg/dl Calcium (8.5-10.1) mg/dl Total Bilirubin (0.2-1) mg/dl AST (15-37) U/L ALT (12-78) U/L Alkaline Phosphatase (45-117) U/L Troponin I (0-0.045) ng/ml Total Protein (6.4-8.2) gm/dl Albumin (3.4-5.0) gm/dl Globulin (2.5-4.0) gm/dl Albumin/Globulin Ratio (0.9-2) 12/16/20 12/16/20 Range/Units 16:30 11:25 WBC (4.8-10.8) K/uL RBC (4.7-6.1) M/uL Hgb (14.0-18.0) g/dL Hct (42-52) % MCV (80-100) fL MCH (25-34) pg MCHC (32-36) g/dL RDW Std Deviation (36.4-46.3) fL RDW Coeff of Ninfa (11.5-14.5) % Plt Count (130-400) K/uL MPV (7.4-10.4) fL Immature Gran % (Auto) % Neut % (Auto) % Lymph % (Auto) % Louisa % (Auto) % Eos % (Auto) % Baso % (Auto) % Neut # (Auto) (1.4-6.5) K/uL Lymph # (Auto) (1.2-3.4) K/uL Louisa # (Auto) (0.11-0.59) K/uL Eos # (Auto) (0-0.5) K/uL Baso # (Auto) (0-0.2) K/uL Immature Gran # (Auto) (0.00-0.02) K/uL Sodium (136-145) mmol/L Potassium (3.5-5.1) mmol/L Chloride (98-107) mmol/L Carbon Dioxide (21-32) mmol/L Anion Gap (3-11) BUN (7-18) mg/dl Creatinine (0.6-1.4) mg/dl Est Cr Clr Drug Dosing ml/min Est GFR ( Amer) Est GFR (Non-Af Amer) BUN/Creatinine Ratio (10-20) Glucose (70-99) mg/dl POC Glucose 156 H 168 H (70-99) mg/dl Calcium (8.5-10.1) mg/dl Total Bilirubin (0.2-1) mg/dl AST (15-37) U/L ALT (12-78) U/L Alkaline Phosphatase (45-117) U/L Troponin I (0-0.045) ng/ml Total Protein (6.4-8.2) gm/dl Albumin (3.4-5.0) gm/dl Globulin (2.5-4.0) gm/dl Albumin/Globulin Ratio (0.9-2) Coding Level of Care Code [id number] Inpt Consult Level 4 Diagnoses Bradycardia with 31-40 beats per minute R00.1 History of aortic valve replacement Z95.2 Diabetes E11.9 Diabetes mellitus type: type 2 Diabetes mellitus termite treater helper insulin use: without custodial use Diabetes mellitus complication status: without complication CAD (coronary artery disease) I25.10 Coronary Disease-Associated Artery/Lesion type: [place] artery [place] vs. transplanted heart: [place] heart (1) Diabetes Diabetes mellitus type: type 2 Diabetes mellitus custodial insulin use: without custodial use Diabetes mellitus complication status: without complication Qualified Code(s): E11.9 - Type 2 diabetes mellitus without complications (2) CAD (coronary artery disease) Coronary Disease-Associated Artery/Lesion type: [place] artery [place] vs. transplanted heart: [place] heart
--- NOTE | 2020-12-17 10:43 | Orthopedic Progress Note ---
Date of Service December 17, 2020 Assessment & Plan (1) Neurogenic claudication due to lumbar spinal stenosis: Admission and Anticipated Discharge Date Admission Date: December 15, 2020 At this time we will defer to the hospitalist and cable former regarding his me dical treatment. When he is stable would like to begin transfers to chair and ambulation as tolerated. Subjective Patient is in the ICU after an episode of hypotension. At this time he does feel comfortable. He describes some modest back pain no significant leg pain. He felt very good yesterday walking. He is anxious to get out of bed again. Physical Exam Physical Exam: On exam he does have reasonable strength testing lower extremities. Has some deficits to hip flexion on the left none on the right. Sensory intact. Results & Data ([facility]) Vital Signs (Past 12 Hours) Vital Signs Temp Pulse Pulse Resp BP BP Pulse Ox 12/17/20 07:41 41 L 18 98 12/17/20 07:20 37 C 54 L 20 108/68 97 12/17/20 03:00 37.0 C 50 L 18 156/81 H 98 12/17/20 02:51 48 L 156/81 H 12/17/20 02:21 48 L 169/84 H 12/17/20 01:41 45 L 129/85 99 12/17/20 01:32 42 L 98/54 L 93 12/17/20 01:28 39 L 90/49 L 12/17/20 01:26 36 L 56/26 L 12/17/20 01:19 52 L 91/53 L 92 12/16/20 23:21 36.8 C 53 L 18 127/73 95
--- NOTE | 2020-12-17 10:47 | Cardiology Consultation ---
Date of Consultation December 17, 2020 Assessment & Plan (1) Chronotropic incompetence: Patient is a 75-year-old male with complex history as outlined above now with episodes of hypotension and bradycardia consistent with likely vagal mediated changes superimposed on chronic sinus bradycardia/chronotropic incompetence. Patient currently asymptomatic. Telemetry reveals no profound pauses. Blood pressures have been labile postoperatively and patient has received fluid resuscitation and blood products. Exam reflects mild edema no profound volume overload Currently no indications for temporary or permanent pacemaker. Patient may ultimately warrant in the future but would like to delay beyond current surgical intervention Recommendations: Maintain telemetry without interruption Keep external pacemaker patches in place Avoid AV donato blocking drugs. Phenylephrine order discontinued from chart Terazosin placed on hold, amlodipine already held. Agree with dose of furosemide today we will follow renal function and hemoglobin close Gradually increase activities as pain and orthostasis may incite events again We will follow patient hospital (2) Sinus bradycardia: Present on prehospital evaluation (3) History of aortic valve replacement: Echocardiogram November 2020 stable valve structure and function with normal LV systolic (4) CAD (coronary artery disease): No anginal symptoms moderate disease noted by cardiac catheterization April 2019 (5) Stage 3 chronic kidney disease: (6) Hypertension: (7) Neurogenic claudication due to lumbar spinal stenosis: History of Present Illness Reason for Consultation: Sinus bradycardia Requesting Physician: Dr. Burns Attending Physician: Mohsen Quesada DO History of Present Illness Patient is a 75-year-old male followed by [facility] cardiology ,Dr. Al routinely whose underlying issues include 1. Sinus bradycardia with borderline chronotropic incompetence, beta-maureen intolerance. Preoperative EKG marked sinus bradycardia at 49 bpm with atrial ectopy 2. Nonrheumatic aortic valve disease status post aortic valve replacement with bovine bioprosthesis December 2015 and with normally functioning device by echocardiogram November 2020, preserved LV systolic function 3. Moderate nonobstructive coronary artery disease with stable angina pectoris, last diagnostic cardiac catheterization April 2019 4. Hypertension 5. Hyperlipidemia 6. Type 2 diabetes mellitus 7. Prostate carcinoma with radiation and hormonal therapy, associated radiation proctitis Patient is referred for evaluation of bradycardia and intermittent hypotension status post lumbar decompression surgery 12/15/2020 operative note of need for phenylephrine and albumin/volume resuscitation due to hypotension transiently, 2 unit packed red cell transfusion postoperatively. Patient over the day has experienced 2 episodes of symptomatic hypotension and bradycardia last night while attempting to sit out in a chair with associated di scomfort. Telemetry is demonstrated sinus and marked sinus bradycardia no profound pauses. Current rhythm sinus rhythm/sinus bradycardia with atrial ectopic beats He denies any chest pains, tachypalpitations. Does get lightheaded at times. No fevers chills or unexplained infections. No recent bleeding difficulties with rare issues regarding radiation proctitis. Episodes as described above associated with mild diaphoresis and nausea. Appetite slowly returning to baseline. Allergies Allergy/AdvReac Type Severity Reaction Status Date / Time amphotericin B Allergy Unknown DELIRIUM Verified 12/15/20 08:27 metoprolol AdvReac Intermediate Dizziness Verified 12/15/20 08:27 Home Medications Medication Instructions Recorded Confirmed Type amlodipine 10 mg tablet 10 mg PO QAM 12/21/19 10/30/20 History aspirin 81 mg tablet,delayed 81 mg PO QAM 12/21/19 10/30/20 History release calcium carbonate 600 mg calcium 600 mg PO QPM 12/21/19 12/15/20 History (1,500 mg) tablet cholecalciferol (vitamin D3) 50 2,000 units PO QAM tab 12/21/19 12/15/20 Hi story mcg (2,000 unit) tablet ferrous sulfate 325 mg (65 mg 325 mg PO QAM tab 12/21/19 12/15/20 History iron) tablet furosemide 20 mg tablet 20 mg PO QAM tab 12/21/19 12/15/20 History multivitamin 1 tab PO QAM 12/21/19 12/15/20 History pravastatin 20 mg tablet 20 mg PO QPM tab 12/21/19 12/15/20 History terazosin 2 mg tablet 2 mg PO QPM tab 12/21/19 12/15/20 History vitamin E (dl, acetate) 400 unit 400 units PO QPM 12/21/19 12/15/20 History capsule tamsulosin 0.4 mg PO PM 10/30/20 12/15/20 History Patient History Medical History Aortic stenosis S/p valve replacement- bovine heart valve- 2015. Follows with Dr. Al of [facility] CAD (coronary artery disease) 2018 cath shows 40% mid LAD stenosis, 60% stenosis of D1 and ostial dominant Cx Chronic pansinusitis Diabetes Type II- diet controlled per records Hyperlipidemia Hypertension Lyme disease 2016- no residual issues Osteoporosis Prostate CA Dx'ed 2014. S/p XRT and Lupron injections - no current issues Prostate cancer (07/26/15) "Rising PSA pre-pretreatment PSA 20 Status post ultrasound-guided biopsies completed 07/26/2015 Biopsy stage T2c Arroy[place] 5+5 Prostate Volume 28 mL Prostate density 0.714 Hormonal suppression for a total of 2 years Status post completion of radiation therapy utilizing IMRT/IGRT completed 11/16/2015 received 8100 cGy Rising PSA, biochemical failure, PSA 10/13/2017 3.79 Hormone suppression restarted 10/22/2017 Lupron 45 mg IM" On 12/17/16 16:42 Zaria Bonilla wrote "Rising PSA pre-pretreatment PSA 20 Status post ultrasound-guided biopsies completed 07/26/2015 Biopsy stage T2c Marti 5+5 Prostate Volume 28 mL Prostate density 0.714 Hormonal suppression for a total of 2 years Status post completion of radiation therapy utilizing IMRT/IGRT completed 11/16/2015 received 8100 cGy" On 11/20/15 19:00 Zaria Bonilla wrote "Rising PSA pre-pretreatment PSA 20 Status post ultrasound-guided biopsies completed 07/26/2015 Biopsy stage T2c [place] 5+5 Prostate Volume 28 mL Prostate density 0.714 Hormonal suppression Status post completion of radiation therapy utilizing IMRT/IGRT completed 11/16/2015 received 8100 cGy" Radiation proctitis Stage 3 chronic kidney disease follows Dr. Lemons of [facility] History History of aortic valve replacement 2016 > [facility] (cow valve) History of cardiac cath several > last one 2 yrs ago at [facility]> no stents History of carpal tunnel release of both wrists History of cholecystectomy History of colonoscopy History of esophagogastroduodenoscopy (EGD) History of hip replacement right History of knee replacement left History of renal stent present History of sinus surgery History of tonsillectomy History of tooth extraction Nausea and vomiting after administration of anesthetic agent Slow to wake up after anesthesia Family History Mother Cardiac disorder Diabetes Hypertension Father Cancer Malignant neoplasm of the esophagus Other No family history of adverse response to anesthesia No family history of bleeding disorder Social History Smoking Status: Never smoker Second Hand Exposure: No; Do You Dip or Chew Tobacco: No; Tobacco Cessation Education Requested by Patient: No Hx Alcohol Use: No Hx Substance Use: No Preferred Language: Turkish Communication Ability: Effective Compensation Specialist Required: No Beliefs That Will Affect Care: None marital status: Current Living Situation: Spouse Other Information That Helps Us Care for You: No Feels Safe at Home: Yes Safety Concerns: Feels Safe At This Time Assistive Devices: Denture - Upper Assistive Devices Comment: UPPER PARTIAL Review of Systems Review of Systems: All systems reviewed & are unremarkable except as noted in HPI & below Physical Exam Constitutional: no acute distress Patient pale and mildly edematous diffusely Eyes: PERRL, conjunctivae normal, anicteric sclerae ENMT: external ear and nose normal, oropharynx normal Neck: trachea midline, no thyromegaly Respiratory: normal respiratory effort, lungs clear to auscultation Cardiovascular: Rate/Rhythm: regular rate and regular rhythm Heart Sounds: normal S1, normal S2 and + murmur (Grade 1/6 systolic ejection murmur left upper sternal border, no diastolic ); no gallop Palpation: normal PMI Vessels: normal carotid upstroke and radial pulses present; no JVD and no carotid bruit Extremities: + edema (1+ diffuse including upper extremities and hands) Gastrointestinal (Abdomen): normal bowel sounds, soft, nontender, no hepatosplenomegaly Musculoskeletal: no cyanosis or clubbing, extremities motor strength 5/5 Skin: no rashes, warm and dry Surgical incision bandaged Neurologic: PERRL, EOMI, accommodation nl, no face palsy, no dysarthria Psychiatric: A+Ox3, euthymic affect Results & Data ([facility]) Vital Signs (Past 12 Hours) Vital Signs Temp Pulse Pulse Resp BP BP Pulse Ox 12/17/20 07:41 41 L 18 98 12/17/20 07:20 37 C 54 L 20 108/68 97 12/17/20 03:00 37.0 C 50 L 18 156/81 H 98 12/17/20 02:51 48 L 156/81 H 12/17/20 02:21 48 L 169/84 H 12/17/20 01:41 45 L 129/85 99 12/17/20 01:32 42 L 98/54 L 93 12/17/20 01:28 39 L 90/49 L 12/17/20 01:26 36 L 56/26 L 12/17/20 01:19 52 L 91/53 L 92 12/16/20 23:21 36.8 C 53 L 18 127/73 95 Laboratory Results Laboratory Results - last 24 hr 12/16/20 12/16/20 12/16/20 11:25 16:30 20:29 WBC RBC Hgb Hct MCV MCH MCHC RDW Std Deviation RDW Coeff of Ninfa Plt Count MPV Immature Gran % (Auto) Neut % (Auto) Lymph % (Auto) Cameron % (Auto) Eos % (Auto) Baso % (Auto) Neut # (Auto) Lymph # (Auto) Cameron # (Auto) Eos # (Auto) Baso # (Auto) Immature Gran # (Auto) Sodium Potassium Chloride Carbon Dioxide Anion Gap BUN Creatinine Est Cr Clr Drug Dosing Est GFR ( Amer) Est GFR (Non-Af Amer) BUN/Creatinine Ratio Glucose POC Glucose 168 H 156 H 177 H Calcium Total Bilirubin AST ALT Alkaline Phosphatase Troponin I Total Protein Albumin Globulin Albumin/Globulin Ratio 12/17/20 12/17/20 12/17/20 01:20 01:40 01:40 WBC 9.14 RBC 2.99 L Hgb 9.0 L Hct 27.1 L MCV 90.6 MCH 30.1 MCHC 33.2 RDW Std Deviation 49.0 H RDW Coeff of Ninfa 14.7 H Plt Count 135 MPV 10.5 H Immature Gran % (Auto) 0.2 Neut % (Auto) 67.8 Lymph % (Auto) 10.5 Cameron % (Auto) 16.4 Eos % (Auto) 4.9 Baso % (Auto) 0.2 Neut # (Auto) 6.19 Lymph # (Auto) 0.96 L Cameron # (Auto) 1.50 H Eos # (Auto) 0.45 Baso # (Auto) 0.02 Immature Gran # (Auto) 0.02 Sodium 139 Potassium 4.7 Chloride 107 Carbon Dioxide 28 Anion Gap 4.0 BUN 26 H Creatinine 1.51 H Est Cr Clr Drug Dosing 38.7 Est GFR ( Amer) 51.3 Est GFR (Non-Af Amer) 44.2 BUN/Creatinine Ratio 17.0 Glucose 154 H POC Glucose 180 H Calcium 8.0 L Total Bilirubin 0.3 AST 34 ALT 17 Alkaline Phosphatase 61 Troponin I < 0.015 Total Protein 5.1 L Albumin 2.7 L Globulin 2.4 L Albumin/Globulin Ratio 1.1 12/17/20 12/17/20 12/17/20 05:33 07:09 08:56 WBC 8.68 RBC 3.00 L Hgb 9.0 L Hct 27.1 L MCV 90.3 MCH 30.0 MCHC 33.2 RDW Std Deviation 48.0 H RDW Coeff of Ninfa 14.6 H Plt Count 129 L MPV 11.1 H Immature Gran % (Auto) 0.1 Neut % (Auto) 75.8 Lymph % (Auto) 7.0 Cameron % (Auto) 13.6 Eos % (Auto) 3.3 Baso % (Auto) 0.2 Neut # (Auto) 6.57 H Lymph # (Auto) 0.61 L Cameron # (Auto) 1.18 H Eos # (Auto) 0.29 Baso # (Auto) 0.02 Immature Gran # (Auto) 0.01 Sodium Potassium Chloride Carbon Dioxide Anion Gap BUN Creatinine Est Cr Clr Drug Dosing Est GFR ( Amer) Est GFR (Non-Af Amer) BUN/Creatinine Ratio Glucose POC Glucose 175 H 148 H Calcium Total Bilirubin AST ALT Alkaline Phosphatase Troponin I Total Protein Albumin Globulin Albumin/Globulin Ratio (1) CAD (coronary artery disease) Coronary Disease-Associated Artery/Lesion type: [place] artery [place] vs. transplanted heart: [place] heart
--- NOTE | 2020-12-17 11:48 | Electrocardiogram Report ---
Test Reason : Blood Pressure : / mmHG Vent. Rate : 049 BPM Atrial Rate : 049 BPM P-R Int : 156 ms QRS Dur : 086 ms QT Int : 448 ms P-R-T Axes : 033 034 113 degrees QTc Int : 404 ms Sinus bradycardia T wave abnormality, consider lateral ischemia Abnormal ECG When compared with ECG of 23-NOV-2020 14:47, Premature atrial complexes are no longer Present T wave inversion less evident in Lateral leads Confirmed by Chuck Rangel ([id number]) on 12/17/2020 11:48:05 AM Referred By: Mohsen Quesada Confirmed By:Chuck Rangel
[2020-12-17] MEDS: oxyCODONE HCL IR 5 MG TAB (IMMEDIATE RELEASE) PO PRN ×2 (11:51→23:03)
[2020-12-17] MEDS ORDERED: bisacodyL 10 MG SUPP PR PRN (12:28)
[2020-12-17] MEDS: CALCIUM 600MG + VIT D 400 IU TAB PO SCH (21:40)
[2020-12-17] MEDS: TAMSULOSIN HCL 0.4 MG CAP PO SCH (21:41)
[2020-12-17] MEDS: PRAVASTATIN SOD 20 MG TAB PO SCH (21:41)
[2020-12-17] MEDS: TOCOPHERYL, DL-ALPHA 400 UNITS CAP PO SCH (21:43)
[2020-12-17] MEDS: DOCUSATE SODIUM/SENNA 50/8.6MG TAB PO SCH (21:45)
[2020-12-18] MEDS: POLYETHYLENE (MIRALAX) 17 GM PACK PO SCH ×5 (00:31→23:59)
[2020-12-18 05:53] LABS: Hematocrit (blood only) 28.3 % (42-52); Hemoglobin 9.2 g/dL (14.0-18.0); Mean Corpuscular Hemoglobin 29.9 pg (25-34); Mean Corpuscular Hgb Conc 32.5 g/dL (32-36); Mean Corpuscular Volume 91.9 fL (80-100); Mean Platelet Volume 11.4 fL (7.4-10.4); Platelet Count 131 K/uL (130-400); RDW Coefficient of Variation 14.1 % (11.5-14.5); Red Blood Count 3.08 M/uL (4.7-6.1)
[2020-12-18 06:21] LABS: Albumin Level 2.5 gm/dl (3.4-5.0); BUN Creatinine Ratio 18.3 (10-20); Calcium 8.8 mg/dl (8.5-10.1); Est GFR (African American) 80.5; Est GFR (Non-African American) 69.4; Potassium 4.4 mmol/L (3.5-5.1)
[2020-12-18 06:24] LABS: Albumin Globulin Ratio 0.9 (0.9-2); Bilirubin,Total 0.4 mg/dl (0.2-1); Globulin 2.7 gm/dl (2.5-4.0); Phosphorus 2.7 mg/dl (2.5-4.9); Total Protein 5.2 gm/dl (6.4-8.2)
--- NOTE | 2020-12-18 07:48 | Anesthesiology Progress Note ---
Date of Service December 18, 2020 Anesthesia Post Procedure Vital Signs Vital Signs: Temp Pulse Resp BP Pulse Ox 12/18/20 06:00 56 L 18 95 12/18/20 05:24 53 L 13 171/87 H 100 12/18/20 05:00 54 L 15 72 L 12/18/20 04:24 53 L 12 153/64 H 94 12/18/20 04:00 53 L 13 99 12/18/20 03:24 61 20 182/86 H 95 12/18/20 03:00 58 L 20 97 12/18/20 02:24 56 L 20 152/84 H 89 L 12/18/20 02:00 55 L 15 98 12/18/20 01:24 54 L 13 165/71 H 97 12/18/20 01:00 55 L 13 99 12/18/20 00:25 52 L 8 L 144/70 H 99 12/18/20 00:00 50 L 16 96 12/17/20 23:24 56 L 16 184/62 H 97 12/17/20 23:00 45 L 18 98 12/17/20 22:24 51 L 17 161/74 H 98 12/17/20 22:00 53 L 16 97 12/17/20 21:54 54 L 21 162/92 H 97 12/17/20 21:24 48 L 19 171/85 H 95 12/17/20 21:00 60 18 98 12/17/20 20:56 55 L 19 154/89 H 96 12/17/20 20:25 46 L 18 168/57 H 96 12/17/20 20:00 54 L 22 96 12/17/20 19:54 49 L 16 159/98 H 98 12/17/20 19:24 50 L 19 151/61 H 98 12/17/20 19:00 52 L 20 97 12/17/20 18:54 50 L 17 164/58 H 99 12/17/20 18:24 52 L 22 151/82 H 91 12/17/20 18:00 48 L 15 93 12/17/20 17:54 49 L 15 163/59 H 100 12/17/20 17:25 52 L 16 97 12/17/20 17:24 55 L 23 162/51 H 97 12/17/20 17:00 53 L 19 98 12/17/20 16:54 55 L 20 152/66 H 95 12/17/20 16:25 68 27 H 171/43 H 94 12/17/20 16:11 37.2 C 12/17/20 16:00 55 L 20 95 12/17/20 15:54 45 L 17 152/68 H 97 12/17/20 15:24 54 L 17 183/83 H 91 12/17/20 15:00 50 L 18 94 12/17/20 14:26 47 L 18 99 12/17/20 14:25 50 L 17 150/60 H 95 12/17/20 14:00 52 L 21 98 12/17/20 13:54 56 L 17 147/56 H 91 12/17/20 13:00 54 L 21 99 12/17/20 12:54 63 18 178/94 H 98 12/17/20 12:45 53 L 23 99 12/17/20 12:30 64 24 95 12/17/20 12:28 63 19 172/84 H 98 12/17/20 12:24 73 16 213/78 H 99 12/17/20 12:15 65 15 96 12/17/20 12:00 60 14 98 12/17/20 11:54 66 22 188/72 H 98 12/17/20 11:45 60 17 92 12/17/20 11:30 58 L 22 91 12/17/20 11:24 57 L 17 175/84 H 92 12/17/20 11:15 50 L 18 90 12/17/20 11:00 54 L 15 94 12/17/20 10:55 58 L 14 190/75 H 96 12/17/20 10:45 53 L 15 84 L 12/17/20 10:30 58 L 25 H 97 12/17/20 10:24 57 L 12 161/74 H 93 12/17/20 10:15 53 L 19 98 12/17/20 10:00 46 L 12 98 12/17/20 09:54 47 L 23 190/71 H 98 12/17/20 09:45 45 L 18 97 12/17/20 09:30 56 L 22 97 12/17/20 09:24 54 L 16 158/76 H 96 12/17/20 09:15 57 L 20 97 12/17/20 09:03 48 L 17 166/67 H 98 12/17/20 09:00 49 L 18 98 Pain Intensity Lower Back: Pain Intensity: 7 Left Leg: Pain Intensity: 2 Notes Mental Status: alert / awake / arousable and participated in evaluation Patient Amnestic to Procedure: Yes Nausea / Vomiting: adequately controlled Pain: adequately controlled Airway Patency, RR, SpO2: stable & adequate BP & HR: stable & adequate Hydration State: stable & adequate Anesthetic Complications: no major complications apparent
[2020-12-18] MEDS: CHOLECALCIFEROL 1,000 UNITS 25 MCG TAB PO SCH (07:50)
[2020-12-18] MEDS: FERROUS SULFATE 325 MG TAB PO SCH (07:51)
[2020-12-18] MEDS: MULTIVITAMIN TAB PO SCH (07:51)
[2020-12-18] MEDS: ASPIRIN 81 MG ECTAB PO SCH (07:51)
[2020-12-18] MEDS: FUROSEMIDE 20 MG TAB PO SCH (07:51)
[2020-12-18] MEDS: INSULIN ASPART 100 UNITS/ML 3 ML PEN SC SCH ×4 (07:54→19:46)
--- NOTE | 2020-12-18 08:22 | Critical Care Progress Note ---
Date of Service December 18, 2020 Assessment & Plan (1) Sinus bradycardia: Impression: 75-year-old male status post lumbar spine surgery transferred to ICU 12/17 with symptomatic bradycardia and heart rates in the 30s with low blood pressure. Cardiology consultation appreciated. 24-hour events: Patient was observed in the ICU. He is not had any issues with bradycardia requiring intervention. His blood pressures been stable. Case discussed with off going driller and reamer and with his hospitalist today Recommendation: 1. Symptomatic bradycardia: Management per cardiology. He appears stable at this point time and is eligible to downgrade out of the intensive care unit to the telemetry floor. Discussed with hospitalist. Antihypertensives have been held. The patient is demonstrating a slight increase in his systolic blood pressure. We will place him on low-dose hydralazine and see how he does. Additional recommendations per cardiology 2. Diabetes: Continue glycemic control. May benefit from tighter sliding scale. 3. Chronic kidney disease: Creatinine down to 1. 04 today. Urine output is adequate. 4. Hypotension: Now resolved. The patient's albumin is low at 2.5 and may be contributing. Volume status appears appropriate currently. 5. Recent lumbar spine surgery: PT and OT as tolerated. Out of bed as tolerated. Okay to transfer out of ICU. We will sign off at this point time. Feel free to contact us if we can be of additional assistance. (2) Hypotension: (3) Diabetes: Admission and Anticipated Discharge Date Admission Date: December 15, 2020 Subjective Patient without complaints this morning. No dizziness lightheadedness chest pain or palpitations. His back pain is reasonably well controlled. He is tolerating a diet. He is voiding without difficulty. He is not had any sustained bradycardia arrhythmias noted on telemetry. Review of Systems Review of Systems: All systems reviewed & are unremarkable except as noted in HPI & below Physical Exam Constitutional: WD/WN, vitals as above Neck: trachea midline, no thyromegaly Respiratory: normal respiratory effort, lungs clear to auscultation Cardiovascular: RRR, no murmur, no edema Gastrointestinal (Abdomen): normal bowel sounds, soft, nontender, no hepatosplenomegaly Musculoskeletal: Extremities: extremities normal to inspection Skin: no rashes, warm and dry Neurologic: Nonfocal exam Lymphatic: no cervical lymphadenopathy Results & Data Results & Data ([facility]) Vital Signs (Past 12 Hours) Vital Signs Pulse Resp BP Pulse Ox 12/18/20 06:00 56 L 18 95 12/18/20 05:24 53 L 13 171/87 H 100 12/18/20 05:00 54 L 15 72 L 12/18/20 04:24 53 L 12 153/64 H 94 12/18/20 04:00 53 L 13 99 12/18/20 03:24 61 20 182/86 H 95 12/18/20 03:00 58 L 20 97 12/18/20 02:24 56 L 20 152/84 H 89 L 12/18/20 02:00 55 L 15 98 12/18/20 01:24 54 L 13 165/71 H 97 12/18/20 01:00 55 L 13 99 12/18/20 00:25 52 L 8 L 144/70 H 99 12/18/20 00:00 50 L 16 96 12/17/20 23:24 56 L 16 184/62 H 97 12/17/20 23:00 45 L 18 98 12/17/20 22:24 51 L 17 161/74 H 98 12/17/20 22:00 53 L 16 97 12/17/20 21:54 54 L 21 162/92 H 97 12/17/20 21:24 48 L 19 171/85 H 95 12/17/20 21:00 60 18 98 12/17/20 20:56 55 L 19 154/89 H 96 12/17/20 20:25 46 L 18 168/57 H 96 Laboratory Results 12/18/20 05:05 12/18/20 05:05 Diagnostic Findings No new imaging studies Coding Level of Care Code 59843 Subs Hosp Care Lvl 3 Diagnoses Sinus bradycardia R00.1 Hypotension I95.9 Diabetes E11.9 Diabetes mellitus type: type 2 Diabetes mellitus terminal operations supervisor insulin use: without chcf use Diabetes mellitus complication status: without complication Time Spent (min) 35 (1) Diabetes Diabetes mellitus type: type 2 Diabetes mellitus chcf insulin use: without terminal operations supervisor use Diabetes mellitus complication status: without complication Qualified Code(s): E11.9 - Type 2 diabetes mellitus without complications
--- NOTE | 2020-12-18 08:51 | Hospitalist Progress Note ---
Date of Service December 18, 2020 Assessment & Plan (1) Neurogenic claudication due to lumbar spinal stenosis: - POD#3 L2-S1 decompression and fusion by Dr. Quesada - activity and wound care orders as per ortho - pain control with bowel regimen - PT/OT - monitor H/H for acute blood loss anemia and transfuse blood products PRN -Symptomatic Bradycardia, PCU later today, Cards on case (2) Hypotension: -Patient required phenylephrine intraoperatively and albumin 5% postoperatively -Patient now hemodynamically stable -This all was evident during pre-hospital work up -Hold home amlodipine, continue furosemide to start in the morning due to history of valvular disease (3) CAD (coronary artery disease): -Nonobstructive per cardiac cath 2019 -Appears stable, no reports of chest pain -Continue aspirin and statin (4) Diabetes: -Diet controlled -No recent A1c on file, check with a.m. labs -NovoLog per protocol while hospitalized (5) History of aortic valve replacement: -Bioprosthetic (6) Stage 3 chronic kidney disease: -Baseline creatinine ~1.4 -Monitor renal functions -Gentle IVFs (7) DVT prophylaxis: -TEDs/SCDs as per spine Ortho Resume Post Op Care per Surgery Protocol Incentive Spirometry 10x per Hour Resume Relative Home Meds Where Appropriate PT/OT with appropriate fall precautions Transition from IV to PO Pain control DVT Prophylaxis Per Surgery Protocol Monitor Daily Labs ROS-No Headache, No Visual Changes, No Nausea, No Vomiting, No Fever, No Chills, No Neck Pain or Stiffness, No Chest Pain, No Palpitations, No SOB, No OSEGUERA, No Cough, No Sputum, No Wheezing, No Abdominal Pain, No Diarrhea, No Hematemesis, No Hemoptysis, No Unexpected Weight Loss, No Flank pain, No Melena, No Hematochezia, No Frequency, No Urgency, No Burning, No Hematuria, No Rashes, No Diaphoresis. Appetite is Normal, c/o of near syncope Physical Exam Gen-AAO x 3, Weak and Pale, Afebrile, Drain in place Head-NCAT, EOMI, PERRLA, Anicteric Sclera, No Posterior Pharyngeal Erythema Neck-Supple, No JVD, No Thyromegaly, No Masses, No LAD, No Bruits Lungs-Clear to Auscultation Bilaterally, No Rales, No Rhonchi, No Wheezing, No Crepitus Chest-No S4, +S1, +S2, No S3, No Murmurs, No Rubs, No Gallops, No Ectopy Abdomen-Soft, Bowel Sounds Present, Non Tender, Non Distended, No Hepatomegaly, No Splenomegaly, No Palpable Masses, No Rebound, No Rigidity, No Guarding Musculoskeletal-Full Range of Motion Bilaterally, No CVAT Extremities-No Cyanosis, No Clubbing, No Edema Nuero-Cranial Nerves II-XII grossly intact, Motor WNL, DTRs WNL, Strength WNL, Non Focal Psych-Normal Mood Admission and Anticipated Discharge Date Admission Date: December 15, 2020 Results & Data Results & Data ([facility]) Vital Signs (Past 12 Hours) Vital Signs Temp Pulse Resp BP Pulse Ox 12/18/20 08:00 37.2 C 56 L 12/18/20 06:00 56 L 18 95 12/18/20 05:24 53 L 13 171/87 H 100 12/18/20 05:00 54 L 15 72 L 12/18/20 04:24 53 L 12 153/64 H 94 12/18/20 04:00 53 L 13 99 12/18/20 03:24 61 20 182/86 H 95 12/18/20 03:00 58 L 20 97 12/18/20 02:24 56 L 20 152/84 H 89 L 12/18/20 02:00 55 L 15 98 12/18/20 01:24 54 L 13 165/71 H 97 12/18/20 01:00 55 L 13 99 12/18/20 00:25 52 L 8 L 144/70 H 99 12/18/20 00:00 50 L 16 96 12/17/20 23:24 56 L 16 184/62 H 97 12/17/20 23:00 45 L 18 98 12/17/20 22:24 51 L 17 161/74 H 98 12/17/20 22:00 53 L 16 97 12/17/20 21:54 54 L 21 162/92 H 97 12/17/20 21:24 48 L 19 171/85 H 95 12/17/20 21:00 60 18 98 12/17/20 20:56 55 L 19 154/89 H 96 (1) CAD (coronary artery disease) Coronary Disease-Associated Artery/Lesion type: [place] artery [place] vs. transplanted heart: [place] heart (2) Diabetes Diabetes mellitus type: type 2 Diabetes mellitus prison insulin use: without intermediate card tender use Diabetes mellitus complication status: without complication Qualified Code(s): E11.9 - Type 2 diabetes mellitus without complications
[2020-12-18] MEDS ORDERED: hydrALAZINE 10 MG TAB PO SCH (09:00)
--- NOTE | 2020-12-18 10:05 | Electrocardiogram Report ---
Test Reason : Blood Pressure : / mmHG Vent. Rate : 041 BPM Atrial Rate : 041 BPM P-R Int : 152 ms QRS Dur : 086 ms QT Int : 452 ms P-R-T Axes : 048 038 103 degrees QTc Int : 372 ms Marked sinus bradycardia T wave abnormality, consider lateral ischemia Abnormal ECG When compared with ECG of 23-NOV-2020 14:47, Premature atrial complexes are no longer Present Nonspecific T wave abnormality no longer evident in Inferior leads T wave inversion less evident in Lateral leads Confirmed by Nelson Juarez ([id number] on 12/18/2020 10:05:34 AM Referred By: Mohsen Quesada Confirmed By:Nelson Juarez
--- NOTE | 2020-12-18 10:07 | Orthopedic Progress Note ---
Date of Service December 18, 2020 Assessment & Plan (1) Neurogenic claudication due to lumbar spinal stenosis: Admission and Anticipated Discharge Date Admission Date: December 15, 2020 At this time he is tolerating chair and short walks. I encouraged him to walk as he is able to tolerate. We will maintain the ELTON drain another day. Subjective Patient is in chair at the bedside his back pain is controlled leg symptoms improved. Denies any chest pain shortness of breath. Physical Exam Physical Exam: On exam he has improved strength of bilateral quadriceps testing plantarflexion dorsiflexion intact. He appears comfortable. Results & Data ([facility]) Vital Signs (Past 12 Hours) Vital Signs Temp Pulse Resp BP Pulse Ox 12/18/20 09:00 52 L 18 98 12/18/20 08:24 61 24 142/59 H 94 12/18/20 08:00 37.2 C 61 15 97 12/18/20 07:24 53 L 21 161/79 H 95 12/18/20 07:00 57 L 16 99 12/18/20 06:24 58 L 16 191/66 H 98 12/18/20 06:00 56 L 18 95 12/18/20 05:24 53 L 13 171/87 H 100 12/18/20 05:00 54 L 15 72 L 12/18/20 04:24 53 L 12 153/64 H 94 12/18/20 04:00 53 L 13 99 12/18/20 03:24 61 20 182/86 H 95 12/18/20 03:00 58 L 20 97 12/18/20 02:24 56 L 20 152/84 H 89 L 12/18/20 02:00 55 L 15 98 12/18/20 01:24 54 L 13 165/71 H 97 12/18/20 01:00 55 L 13 99 12/18/20 00:25 52 L 8 L 144/70 H 99 12/18/20 00:00 50 L 16 96 12/17/20 23:24 56 L 16 184/62 H 97 12/17/20 23:00 45 L 18 98 12/17/20 22:24 51 L 17 161/74 H 98
[2020-12-18] MEDS: amLODIPine BESYLATE 5 MG TAB PO SCH (11:07)
--- NOTE | 2020-12-18 11:16 | Cardiology Progress Note ---
Date of Service December 18, 2020 Assessment & Plan (1) Chronotropic incompetence: Patient is a 75-year-old male with complex history as outlined above now with episodes of hypotension and bradycardia consistent with likely vagal mediated changes superimposed on chronic sinus bradycardia/chronotropic incompetence. Patient currently asymptomatic. Telemetry reveals no profound pauses. Blood pressures have been labile postoperatively and patient has received fluid resuscitation and blood products. Exam reflects mild edema no profound volume overload Currently no indications for temporary or permanent pacemaker. Patient may ultimately warrant in the future but would like to delay beyond current surgical intervention Patient without further profound bradycardia arrhythmias or symptomatic events overnight. Pain is better controlled. No nausea or vomiting. Will begin to mobilize activities. Treat blood pressure Recommendations: Maintain telemetry without interruption Keep external pacemaker patches in place Avoid AV donato blocking drugs. Phenylephrine order discontinued from chart We will reintroduce amlodipine reduced dose of 5 mg/day first dose this morning and gradually titrate as needed. We will continue to hold Terazosin until hemodynamically stable. (2) Sinus bradycardia: Present on prehospital evaluation (3) History of aortic valve replacement: Echocardiogram November 2020 stable valve structure and function with normal LV systolic (4) CAD (coronary artery disease): No anginal symptoms moderate disease noted by cardiac catheterization April 2019 (5) Stage 3 chronic kidney disease: (6) Hypertension: (7) Neurogenic claudication due to lumbar spinal stenosis: Admission and Anticipated Discharge Date Admission Date: December 15, 2020 Subjective Patient seen and examined, chart, medications, telemetry reviewed. Patient denies any cardiac complaints this morning. No further dizziness lightheadedness, diaphoresis. No chest pains or discomfort. Back pain under better control. No nausea or emesis with good oral intake. Blood pressure is now starting to increase. Telemetry reviewed which demonstrates sinus and sinus bradycardia. No profound pauses rare atrial ventricular ectopy. Physical Exam Constitutional: no acute distress Eyes: PERRL, conjunctivae normal, anicteric sclerae ENMT: external ear and nose normal, oropharynx normal Neck: trachea midline, no thyromegaly Respiratory: normal respiratory effort, lungs clear to auscultation Cardiovascular: Rate/Rhythm: regular rate and regular rhythm Heart Sounds: normal S1, normal S2 and + murmur (Grade 1/6 systolic ejection murmur left upper sternal border, no diastolic ); no gallop Palpation: normal PMI Vessels: normal carotid upstroke and radial pulses present; no JVD and no carotid bruit Extremities: + edema (1+ diffuse including upper extremities and hands) Gastrointestinal (Abdomen): normal bowel sounds, soft, nontender, no hepatosplenomegaly Musculoskeletal: no cyanosis or clubbing, extremities motor strength 5/5 Skin: no rashes, warm and dry Neurologic: PERRL, EOMI, accommodation nl, no face palsy, no dysarthria Psychiatric: A+Ox3, euthymic affect Results & Data ([facility]) Vital Signs (Past 12 Hours) Vital Signs Temp Pulse Resp BP Pulse Ox 12/18/20 10:46 98 12/18/20 09:00 52 L 18 98 12/18/20 08:24 61 24 142/59 H 94 12/18/20 08:00 37.2 C 61 15 97 12/18/20 07:24 53 L 21 161/79 H 95 12/18/20 07:00 57 L 16 99 12/18/20 06:24 58 L 16 191/66 H 98 12/18/20 06:00 56 L 18 95 12/18/20 05:24 53 L 13 171/87 H 100 12/18/20 05:00 54 L 15 72 L 12/18/20 04:24 53 L 12 153/64 H 94 12/18/20 04:00 53 L 13 99 12/18/20 03:24 61 20 182/86 H 95 12/18/20 03:00 58 L 20 97 12/18/20 02:24 56 L 20 152/84 H 89 L 12/18/20 02:00 55 L 15 98 12/18/20 01:24 54 L 13 165/71 H 97 12/18/20 01:00 55 L 13 99 12/18/20 00:25 52 L 8 L 144/70 H 99 12/18/20 00:00 50 L 16 96 12/17/20 23:24 56 L 16 184/62 H 97 (1) CAD (coronary artery disease) Coronary Disease-Associated Artery/Lesion type: [place] artery [place] vs. transplanted heart: [place] heart
[2020-12-18] MEDS: ONDANSETRON 4 MG OD TAB PO PRN (19:45)
[2020-12-18] MEDS: TOCOPHERYL, DL-ALPHA 400 UNITS CAP PO SCH (19:45)
[2020-12-18] MEDS: PRAVASTATIN SOD 20 MG TAB PO SCH (19:46)
[2020-12-18] MEDS: CALCIUM 600MG + VIT D 400 IU TAB PO SCH (19:46)
[2020-12-18] MEDS: TAMSULOSIN HCL 0.4 MG CAP PO SCH (19:46)
[2020-12-18] MEDS: TERAZOSIN HCL 1 MG CAP PO SCH (19:46)
[2020-12-18] MEDS: DOCUSATE SODIUM/SENNA 50/8.6MG TAB PO SCH (19:47)
[2020-12-18] MEDS: oxyCODONE HCL IR 5 MG TAB (IMMEDIATE RELEASE) PO PRN (22:23)
[2020-12-19 05:22] LABS: Hematocrit (blood only) 28.8 % (42-52); Hemoglobin 9.3 g/dL (14.0-18.0); Mean Corpuscular Hemoglobin 29.4 pg (25-34); Mean Corpuscular Hgb Conc 32.3 g/dL (32-36); Mean Corpuscular Volume 91.1 fL (80-100); Mean Platelet Volume 11.3 fL (7.4-10.4); Platelet Count 150 K/uL (130-400); RDW Coefficient of Variation 13.7 % (11.5-14.5); RDW Standard Deviation 45.4 fL (36.4-46.3); Red Blood Count 3.16 M/uL (4.7-6.1); White Blood Count 6.55 K/uL (4.8-10.8)
[2020-12-19 05:48] LABS: BUN Creatinine Ratio 21.8 (10-20); Calcium 8.7 mg/dl (8.5-10.1); Creatinine Clr Calc Pharmacy 55.9 ml/min; Est GFR (African American) 78.6; Est GFR (Non-African American) 67.8; Potassium 4.3 mmol/L (3.5-5.1)
--- NOTE | 2020-12-19 07:13 | Hospitalist Progress Note ---
Date of Service December 19, 2020 Assessment & Plan (1) Neurogenic claudication due to lumbar spinal stenosis: - POD#4 L2-S1 decompression and fusion by Dr. Quesada - activity and wound care orders as per ortho - pain control with bowel regimen - PT/OT - monitor H/H for acute blood loss anemia and transfuse blood products PRN -PCU status, Cards on case, (2) Hypotension: -Patient required phenylephrine intraoperatively and albumin 5% postoperatively -BP up now -This all was evident during pre-hospital work up -Resumed amlodipine at 5 mg, continue furosemide (3) CAD (coronary artery disease): -Nonobstructive per cardiac cath 2019 -Appears stable, no reports of chest pain -Continue aspirin and statin (4) Diabetes: -Diet controlled -No recent A1c on file, check with a.m. labs -NovoLog per protocol while hospitalized (5) History of aortic valve replacement: -Bioprosthetic (6) Stage 3 chronic kidney disease: -Baseline creatinine ~1.4 -Monitor renal functions -Off IVFs (7) DVT prophylaxis: -TEDs/SCDs as per spine Ortho Resume Post Op Care per Surgery Protocol Incentive Spirometry 10x per Hour PT/OT PO Pain control DVT Prophylaxis Per Surgery Protocol Monitor Daily Labs Possible DC today, await Cardiac opinion ROS-No Headache, No Visual Changes, No Nausea, No Vomiting, No Fever, No Chills, No Neck Pain or Stiffness, No Chest Pain, No Palpitations, No SOB, No OSEGUERA, No Cough, No Sputum, No Wheezing, No Abdominal Pain, No Diarrhea, No Hematemesis, No Hemoptysis, No Unexpected Weight Loss, No Flank pain, No Melena, No Hematochezia, No Frequency, No Urgency, No Burning, No Hematuria, No Rashes, No Diaphoresis. Appetite is Normal, Physical Exam Gen-AAO x 3, Afebrile Head-NCAT, EOMI, PERRLA, Anicteric Sclera, No Posterior Pharyngeal Erythema Neck-Supple, No JVD, No Thyromegaly, No Masses, No LAD, No Bruits Lungs-Clear to Auscultation Bilaterally, No Rales, No Rhonchi, No Wheezing, No Crepitus Chest-No S4, +S1, +S2, No S3, No Murmurs, No Rubs, No Gallops, No Ectopy Abdomen-Soft, Bowel Sounds Present, Non Tender, Non Distended, No Hepatomegaly, No Splenomegaly, No Palpable Masses, No Rebound, No Rigidity, No Guarding Musculoskeletal-Full Range of Motion Bilaterally, No CVAT Extremities-No Cyanosis, No Clubbing, No Edema Nuero-Cranial Nerves II-XII grossly intact, Motor WNL, DTRs WNL, Strength WNL, Non Focal Psych-Normal Mood Admission and Anticipated Discharge Date Admission Date: December 15, 2020 Results & Data Results & Data ([facility]) Vital Signs (Past 12 Hours) Vital Signs Pulse Resp BP 12/19/20 00:00 60 21 176/74 H 12/18/20 23:00 60 17 12/18/20 22:00 62 18 12/18/20 21:00 66 21 12/18/20 20:00 70 13 (1) CAD (coronary artery disease) Coronary Disease-Associated Artery/Lesion type: [place] artery [place] vs. transplanted heart: [place] heart (2) Diabetes Diabetes mellitus type: type 2 Diabetes mellitus termite treater helper insulin use: without senior care use Diabetes mellitus complication status: without complication Qualified Code(s): E11.9 - Type 2 diabetes mellitus without complications
[2020-12-19] MEDS: CHOLECALCIFEROL 1,000 UNITS 25 MCG TAB PO SCH (08:02)
[2020-12-19] MEDS: ASPIRIN 81 MG ECTAB PO SCH (08:02)
[2020-12-19] MEDS: MULTIVITAMIN TAB PO SCH (08:03)
[2020-12-19] MEDS: INSULIN ASPART 100 UNITS/ML 3 ML PEN SC SCH ×4 (08:03→21:27)
[2020-12-19] MEDS: FUROSEMIDE 20 MG TAB PO SCH (08:03)
[2020-12-19] MEDS: POLYETHYLENE (MIRALAX) 17 GM PACK PO SCH ×3 (08:03→16:47)
[2020-12-19] MEDS: amLODIPine BESYLATE 5 MG TAB PO SCH ×2 (08:03→20:14)
[2020-12-19] MEDS: FERROUS SULFATE 325 MG TAB PO SCH (08:03)
--- NOTE | 2020-12-19 12:26 | Cardiology Progress Note ---
Date of Service December 19, 2020 Assessment & Plan (1) Chronotropic incompetence: Patient is a 75-year-old male with complex history as outlined above now with episodes of hypotension and bradycardia consistent with likely vagal mediated changes superimposed on chronic sinus bradycardia/chronotropic incompetence. Patient currently asymptomatic. Telemetry reveals no profound pauses. Blood pressures have been labile postoperatively and patient has received fluid resuscitation and blood products. Exam reflects mild edema no profound volume overload Currently no indications for temporary or permanent pacemaker. Patient may ultimately warrant in the future but would like to delay beyond current surgical intervention Patient without further profound bradycardia arrhythmias or symptomatic events times greater than 2 days. No arrhythmias Recommendations:Okay to transfer to [facility] Off telemetry We will increase amlodipine to 5 mg p.o. twice daily (variant of home dosing) Continue to hold Terazosin (2) Sinus bradycardia: Present on prehospital evaluation (3) History of aortic valve replacement: Echocardiogram November 2020 stable valve structure and function with normal LV systolic (4) CAD (coronary artery disease): No anginal symptoms moderate disease noted by cardiac catheterization April 2019 (5) Stage 3 chronic kidney disease: (6) Hypertension: (7) Neurogenic claudication due to lumbar spinal stenosis: Admission and Anticipated Discharge Date Admission Date: December 15, 2020 Subjective Patient seen and examined, chart, medications, telemetry reviewed. Patient denies any cardiac complaints this morning. No arrhythmias on telemetry. No dizziness or lightheadedness. No hypotension with blood pressures gradually increasing blood pressures gradually increasing Out of bed to chair with good pain tolerance Review of Systems Review of Systems: All systems reviewed & are unremarkable except as noted in HPI & below Physical Exam Constitutional: no acute distress Eyes: PERRL, conjunctivae normal, anicteric sclerae ENMT: external ear and nose normal, oropharynx normal Neck: trachea midline, no thyromegaly Respiratory: normal respiratory effort, lungs clear to auscultation Cardiovascular: Rate/Rhythm: regular rate and regular rhythm Heart Sounds: normal S1, normal S2 and + murmur (Grade 1/6 systolic ejection murmur left upper sternal border, no diastolic ); no gallop Palpation: normal PMI Vessels: normal carotid upstroke and radial pulses present; no JVD and no carotid bruit Extremities: + edema (Trace only and improving) Gastrointestinal (Abdomen): normal bowel sounds, soft, nontender, no hepatosplenomegaly Musculoskeletal: no cyanosis or clubbing, extremities motor strength 5/5 Skin: no rashes, warm and dry Neurologic: PERRL, EOMI, accommodation nl, no face palsy, no dysarthria Psychiatric: A+Ox3, euthymic affect Results & Data ([place]) Vital Signs (Past 12 Hours) Vital Signs Temp Pulse Pulse Resp BP Pulse Ox 12/19/20 12:00 37.2 C 60 59 L 18 123/68 96 12/19/20 08:00 60 Laboratory Results Laboratory Results - last 24 hr 12/18/20 12/18/20 12/19/20 16:30 19:44 04:52 WBC 6.55 RBC 3.16 L Hgb 9.3 L Hct 28.8 L MCV 91.1 MCH 29.4 MCHC 32.3 RDW Std Deviation 45.4 RDW Coeff of Ninfa 13.7 Plt Count 150 MPV 11.3 H Sodium Potassium Chloride Carbon Dioxide Anion Gap BUN Creatinine Est Cr Clr Drug Dosing Est GFR ( Amer) Est GFR (Non-Af Amer) BUN/Creatinine Ratio Glucose POC Glucose 151 H 135 H Calcium 12/19/20 12/19/20 12/19/20 04:52 07:34 11:06 WBC RBC Hgb Hct MCV MCH MCHC RDW Std Deviation RDW Coeff of Ninfa Plt Count MPV Sodium 139 Potassium 4.3 Chloride 107 Carbon Dioxide 28 Anion Gap 4.0 BUN 23 H Creatinine 1.06 Est Cr Clr Drug Dosing 55.9 Est GFR ( Amer) 78.6 Est GFR (Non-Af Amer) 67.8 BUN/Creatinine Ratio 21.8 H Glucose 142 H POC Glucose 159 H 166 H Calcium 8.7 (1) CAD (coronary artery disease) Coronary Disease-Associated Artery/Lesion type: [place] artery [place] vs. transplanted heart: [place] heart
--- NOTE | 2020-12-19 16:30 | Orthopedic Progress Note ---
Date of Service December 19, 2020 Assessment & Plan (1) Neurogenic claudication due to lumbar spinal stenosis: Admission and Anticipated Discharge Date Admission Date: December 15, 2020 This time continue physical therapy and Occupational Therapy. He may be a can didate for rehab placement. We will discontinue his drain today. Subjective Back pain controlled leg symptoms markedly improved. Denies any chest pain or shortness of breath. Physical Exam Physical Exam: Patient is an these are at the bedside. Skin strength testing. Results & Data ([facility]) Vital Signs (Past 12 Hours) Vital Signs Temp Pulse Pulse Resp BP Pulse Ox 12/19/20 12:00 37.2 C 60 59 L 18 123/68 96 12/19/20 08:00 60
[2020-12-19] MEDS: diphenhydrAMINE Capsule 25 MG CAP PO PRN (18:39)
[2020-12-19] MEDS: ONDANSETRON 4 MG OD TAB PO PRN (20:14)
[2020-12-19] MEDS: PRAVASTATIN SOD 20 MG TAB PO SCH (20:15)
[2020-12-19] MEDS: CALCIUM 600MG + VIT D 400 IU TAB PO SCH (20:15)
[2020-12-19] MEDS: TERAZOSIN HCL 1 MG CAP PO SCH (20:15)
[2020-12-19] MEDS: TOCOPHERYL, DL-ALPHA 400 UNITS CAP PO SCH (20:16)
[2020-12-19] MEDS: TAMSULOSIN HCL 0.4 MG CAP PO SCH (20:16)
[2020-12-19] MEDS: DOCUSATE SODIUM/SENNA 50/8.6MG TAB PO SCH (20:20)
[2020-12-19] MEDS: oxyCODONE HCL IR 5 MG TAB (IMMEDIATE RELEASE) PO PRN (21:25)
[2020-12-19] MEDS ORDERED: guaiFENesin/CODEINE 100MG/10MG 5ML UDC PO PRN (22:21)
[2020-12-19] MEDS ORDERED: COUGH DROP (SUGAR FREE) LOZ 24 LOZ/1 BOX BUCCAL PRN (23:28)
[2020-12-20] MEDS: diphenhydrAMINE Capsule 25 MG CAP PO PRN
[2020-12-20] MEDS: POLYETHYLENE (MIRALAX) 17 GM PACK PO SCH ×4 (00:01→17:29)
[2020-12-20] MEDS: FUROSEMIDE 20 MG TAB PO SCH (08:03)
[2020-12-20] MEDS: CHOLECALCIFEROL 1,000 UNITS 25 MCG TAB PO SCH (08:03)
[2020-12-20] MEDS: FERROUS SULFATE 325 MG TAB PO SCH (08:03)
[2020-12-20] MEDS: ASPIRIN 81 MG ECTAB PO SCH (08:03)
[2020-12-20] MEDS: MULTIVITAMIN TAB PO SCH (08:04)
[2020-12-20] MEDS: amLODIPine BESYLATE 5 MG TAB PO SCH ×2 (08:04→20:42)
[2020-12-20] MEDS: INSULIN ASPART 100 UNITS/ML 3 ML PEN SC SCH ×4 (08:40→20:51)
--- NOTE | 2020-12-20 12:59 | Cardiology Progress Note ---
Date of Service December 20, 2020 Assessment & Plan (1) Chronotropic incompetence: Patient is a 75-year-old male with complex history as outlined above now with episodes of hypotension and bradycardia consistent with likely vagal mediated changes superimposed on chronic sinus bradycardia/chronotropic incompetence. Patient currently asymptomatic. Telemetry reveals no profound pauses. Blood pressures have been labile postoperatively and patient has received fluid resuscitation and blood products. Exam reflects mild edema no profound volume overload Currently no indications for temporary or permanent pacemaker. Patient may ultimately warrant in the future but would like to delay beyond current surgical intervention Patient without further profound bradycardia arrhythmias or symptomatic events times greater than 2 days. No arrhythmias Recommendations: We will resume outpatient medications including Terazosin nightly. Blood pressure trending slightly higher this should help all other medications will be continued as ordered. Patient should follow-up with primary supervisor core drilling Dr. Al post hospital discharge No further indications for cardiac evaluations or treatments at this time We will sign off contact with any concerns (2) Sinus bradycardia: Present on prehospital evaluation (3) History of aortic valve replacement: Echocardiogram November 2020 stable valve structure and function with normal LV systolic (4) CAD (coronary artery disease): No anginal symptoms moderate disease noted by cardiac catheterization April 2019 (5) Stage 3 chronic kidney disease: (6) Hypertension: (7) Neurogenic claudication due to lumbar spinal stenosis: Admission and Anticipated Discharge Date Admission Date: December 15, 2020 Subjective Patient was seen and examined chart and recommendations reviewed. Patient without cardiac complaint no dizziness or lightheadedness. No tachypalpitations or chest pain. Gradually increasing activities post surgery. Blood pressures trending towards hypertensive. No bradycardia arrhythmias Patient complains of itching at surgical bandage site only Review of Systems Review of Systems: All systems reviewed & are unremarkable except as noted in HPI & below Physical Exam Constitutional: no acute distress Eyes: PERRL, conjunctivae normal, anicteric sclerae ENMT: external ear and nose normal, oropharynx normal Neck: trachea midline, no thyromegaly Respiratory: normal respiratory effort, lungs clear to auscultation Cardiovascular: Rate/Rhythm: regular rate and regular rhythm Heart Sounds: normal S1, normal S2 and + murmur (Grade 1/6 systolic ejection murmur left upper sternal border, no diastolic ); no gallop Palpation: normal PMI Vessels: normal carotid upstroke and radial pulses present; no JVD and no carotid bruit Extremities: + edema (Trace only and improving) Gastrointestinal (Abdomen): normal bowel sounds, soft, nontender, no hepatosplenomegaly Musculoskeletal: no cyanosis or clubbing, extremities motor strength 5/5 Skin: no rashes, warm and dry Neurologic: PERRL, EOMI, accommodation nl, no face palsy, no dysarthria Psychiatric: A+Ox3, euthymic affect Results & Data ([facility]) Vital Signs (Past 12 Hours) Vital Signs Temp Pulse Resp BP Pulse Ox 12/20/20 07:23 36.9 C 53 L 16 159/76 H 95 Laboratory Results Laboratory Results - last 24 hr 12/19/20 12/19/20 12/20/20 17:11 20:49 08:12 POC Glucose 138 H 157 H 137 H 12/20/20 11:59 POC Glucose 160 H (1) CAD (coronary artery disease) Coronary Disease-Associated Artery/Lesion type: [place] artery [place] vs. transplanted heart: [place] heart
--- NOTE | 2020-12-20 14:40 | Hospitalist Progress Note ---
Date of Service December 20, 2020 Assessment & Plan (1) Neurogenic claudication due to lumbar spinal stenosis: underwent L2-S1 decompression and fusion by Dr. Quesada on 12/15 c/b intraoperative hypotension requiring pressor support and postoperative anemia requiring 2 units of blood to be transfused. - cont activity and wound care orders as per ortho - pain control with bowel regimen - PT/OT (2) Post-operative state: (3) Chronotropic incompetence: Per cardiology patient's episodes of hypotension and bradycardia are likely consistent with vagal mediated changes superimposed on chronic sinus bradycardia/chronotropic incompetence. There are no indications for temporary or permanent pacemaker and he appears to have recovered without any further profound bradycardia arrhythmias or symptomatic events for the last 48 hours. All medications were restarted per his home regimen. He is medically cleared for discharge when felt appropriate by orthopedic service. (4) CAD (coronary artery disease): Moderate disease noted on cardiac catheterization April 2019. Continue medical management. (5) Diabetes: Diet controlled with A1c of 6. DC all insulin and blood sugar checks at this time. Minimal coverage has been required per records. (6) History of aortic valve replacement: -Bioprosthetic (7) Stage 3 chronic kidney disease: Patient is currently at baseline creatinine. (8) DVT prophylaxis: Teds/SCDs/ambulate with assistance Full code Disposition-the patient is cleared to be discharged from a medicine standpoint. May need rehabilitation, defer to Ortho and PT/OT. Thank you for this consultation Antoinette Espinoza DO [employer] Hospitalist Admission and Anticipated Discharge Date Admission Date: December 15, 2020 Subjective 75-year-old man admitted on 12/15 with neurogenic claudication secondary to lumbar stenosis who underwent a lumbar decompression by Dr. Quesada. He required phenylephrine and albumin and volume resuscitation intraoperatively due to transient hypotension as well as 2 units of packed red blood cells postoperatively. He subsequently had 2 episodes of symptomatic hypotension and bradycardia while attempting to sit in a chair with discomfort. As time has progressed from the surgery he is continued to improve and cardiology has added back all of his home medications, some of which were held. Orthopedics has had his drain removed and he is starting to feel better overall. He is tolerating p.o., he is afebrile. He is not quite ambulating as well as he would like. Review of Systems Review of Systems: All systems reviewed & are unremarkable except as noted in Subjective Physical Exam Physical Exam: CONSTITUTIONAL: WNWD, vitals as above, generally well- appearing EYES: normal conjunctivae, no scleral icterus ENT: external ear and nose normal, MMM RESPIRATORY: clear to auscultation bilaterally, no crackles, rales or wheezes, normal respiratory effort CARDIOVASCULAR: regular rate and rhythm, S1 and 2 heard without murmurs, gallops or rubs, no JVD, no peripheral edema GASTROINTESTINAL: soft, nontender, nondistended, no guarding MUSCULOSKELETAL: strength 5/5 throughout, head is normocephalic and atraumatic SKIN: warm and dry, incision on lower back covered with clean dry surgical dressing. NEUROLOGIC: could not elicit bilateral patellar reflexes as patient was in a difficult seated position with feet somewhat stuck on the floor.Some decreased sensation to the left lower extremity Normal cognition. Normal speech. PSYCHIATRIC: alert cooperative and oriented to person, place and time. Results & Data Results & Data ([facility]) Vital Signs (Past 12 Hours) Vital Signs Temp Pulse Resp BP Pulse Ox 12/20/20 07:23 36.9 C 53 L 16 159/76 H 95 Medications Administered Current Inpatient Medications Acetaminophen (Acetaminophen 500 Mg Tab) 1,000 mg PO Q8H PRN PRN Reason: MILD Pain Scale 1,2,3 & Pre PT Stop: 01/14/21 15:36 Al Hydrox/Mg Hydrox/Simethicone (Aluminum/Magnesium Susp 30 Ml Udc) 30 ml PO Q6H PRN PRN Reason: Dyspepsia Stop: 01/14/21 15:36 Amlodipine Besylate (Amlodipine Besylate 5 Mg Tab) 5 mg PO BID JEANNETTE Stop: 01/18/21 20:59 Last Admin: 12/20/20 08:04 Dose: 5 mg Documented by: Aspirin (Aspirin 81 Mg Ectab) 81 mg PO QAM JEANNETTE Stop: 01/15/21 08:59 Last Admin: 12/20/20 08:03 Dose: 81 mg Documented by: Bisacodyl (Bisacodyl 10 Mg Supp) 10 mg WV DAILY PRN PRN Reason: Constipation Stop: 01/16/21 12:27 Dextrose (Dextrose 50% 50 Ml Syringe) 25 - 50 ml IV UD PRN; Protocol PRN Reason: Hypoglycemia Protocol Stop: 01/14/21 17:13 Diphenhydramine HCl (Diphenhydramine Capsule 25 Mg Cap) 25 mg PO Q6H PRN PRN Reason: Allergic Rhinitis/Insomnia Stop: 01/14/21 15:36 Last Admin: 12/20/20 00:00 Dose: 25 mg Documented by: Famotidine (Famotidine 20 Mg Tab) 20 mg PO Q12H PRN PRN Reason: Dyspepsia Stop: 01/14/21 15:36 Ferrous Sulfate (Ferrous Sulfate 325 Mg Tab) [facility] Stop: 01/15/21 08:59 Last Admin: 12/20/20 08:03 Dose: 325 mg Documented by: Furosemide (Furosemide 20 Mg Tab) 20 mg PO QAM [facility] Stop: 01/15/21 08:59 Last Admin: 12/20/20 08:03 Dose: 20 mg Documented by: Glucagon (Glucagon For Inj 1 Mg Vial) 1 mg SQ UD PRN; Protocol PRN Reason: Hypoglycemia Protocol Stop: 01/14/21 17:13 Glucose (Glucose 10 Tabs/Tube) 4 - 8 tabs PO UD PRN; Protocol PRN Reason: Hypoglycemia Protocol Stop: 01/14/21 17:13 Glucose (Glucose 40% Gel 15 Gm Tube) 15 - 30 gm PO UD PRN; Protocol PRN Reason: Hypoglycemia Protocol Stop: 01/14/21 17:13 Hydroxyzine HCl (Hydroxyzine Hcl 25 Mg Tab) 25 mg PO Q8H PRN PRN Reason: Anxiety Stop: 01/14/21 15:36 Lorazepam (Ativan) 0.5 mg in 1 mls @ 1 mls/min IV Q8H PRN PRN Reason: Sedation/Anxiety Stop: 01/14/21 15:36 Promethazine HCl 12.5 mg/ (Sodium Chloride) 50.5 mls @ 202 mls/hr IV Q6H PRN PRN Reason: Nausea &/or Vomiting Stop: 01/14/21 15:36 Last Infusion: 12/17/20 12:04 Dose: Infused Documented by: Influenza Virus Vaccine Quadrival (Do Not Administer Flu Vaccine) 1 ea N/A PRN PRN PRN Reason: Notification Stop: 01/14/21 15:36 Insulin Aspart (Insulin Aspart 100 Units/Ml 3 Ml Pen) 0 units SC ACHS [facility] Stop: 01/14/21 20:59 Last Admin: 12/20/20 12:19 Dose: 4 units Documented by: Lorazepam (Lorazepam 0.5 Mg Tab) 0.5 mg PO Q8H PRN PRN Reason: sedation/anxiety Stop: 01/14/21 15:36 Last Admin: 12/19/20 21:26 Dose: 0.5 mg Documented by: Magnesium Hydroxide (Magnesium Hydroxide Susp 30 Ml Udc) 30 ml PO Q24H PRN PRN Reason: Constipation Stop: 01/14/21 15:36 Menthol (Cough Drop (Sugar Free) Lokesh 24 Lokesh/1 Box) 1 lokesh BUCCAL UD PRN PRN Reason: nursing decsion Stop: 01/18/21 23:27 Last Admin: 12/20/20 00:00 Dose: 1 lokesh Documented by: Metoclopramide HCl (Metoclopramide Hcl Inj 5 Mg/Ml 2 Ml Vial) 10 mg IV Q6H PRN PRN Reason: Nausea &/or Vomiting Stop: 01/14/21 15:36 Miscellaneous (Carbohydrates For Hypoglycemia ) 15 - 30 gm PO UD PRN PRN Reason: Hypoglycemia Protocol Stop: 01/14/21 17:13 Multivitamins (Multivitamin Tab) 1 tab PO QAM JEANNETTE Stop: 01/15/21 08:59 Last Admin: 12/20/20 08:04 Dose: 1 tab Documented by: Multivitamins/Minerals (Calcium 600mg + Vit D 400 Iu Tab) 1 tab PO QPM JEANNETTE Stop: 01/14/21 20:59 Last Admin: 12/19/20 20:15 Dose: 1 tab Documented by: Naloxone HCl (Naloxone Hcl 0.4 Mg/1 Ml Vial/Carp) 0.1 mg IV Q5M PRN PRN Reason: Oversedation/respiratory dep Stop: 01/14/21 15:36 Ondansetron HCl (Ondansetron Inj 2 Mg/Ml 2 Ml Vial) 4 mg IV Q6H PRN PRN Reason: Nausea &/or Vomiting Stop: 01/14/21 15:36 Last Admin: 12/16/20 17:41 Dose: 4 mg Documented by: Ondansetron HCl (Ondansetron 4 Mg Od Tab) 4 mg PO Q6H PRN PRN Reason: Nausea Stop: 01/14/21 15:36 Last Admin: 12/19/20 20:14 Dose: 4 mg Documented by: Oxycodone HCl (Oxycodone Hcl Ir 5 Mg Tab (Immediate Release)) 5 - 10 mg PO Q4H PRN PRN Reason: Pain & Pre PT Stop: 12/29/20 15:36 Last Admin: 12/19/20 21:25 Dose: 10 mg Documented by: Pneumococcal Polyvalent Vaccine (Do Not Administer Pneumococcal Vaccine) 1 ea N/A PRN PRN PRN Reason: Notification Stop: 01/14/21 15:36 Polyethylene Glycol (Polyethylene (Miralax) 17 Gm Pack) 17 gm PO Q6 JEANNETTE Stop: 01/15/21 05:59 Last Admin: 12/20/20 12:20 Dose: 17 gm Documented by: Pravastatin Sodium (Pravastatin Sod 20 Mg Tab) 20 mg PO QPM JEANNETTE Stop: 01/14/21 20:59 Last Admin: 12/19/20 20:15 Dose: 20 mg Documented by: Senna/Docusate Sodium (Docusate Sodium/Senna 50/8.6mg Tab) 2 tab PO HS JEANNETTE Stop: 01/14/21 20:59 Last Admin: 12/19/20 20:20 Dose: 2 tab Documented by: Sodium Biphosphate/Sodium Phosphate (Sod Phosphate/Sod Biphosphate Enema 132 Ml Btl) 132 ml [place] ONE PRN PRN Reason: Constipation Stop: 01/14/21 15:36 Tamsulosin HCl (Tamsulosin Hcl 0.4 Mg Cap) 0.4 mg PO PM JEANNETTE Stop: 01/14/21 20:59 Last Admin: 12/19/20 20:16 Dose: 0.4 mg Documented by: Terazosin HCl (Terazosin Hcl 1 Mg Cap) 2 mg PO QPM JEANNETTE Stop: 01/14/21 20:59 Last Admin: 12/19/20 20:15 Dose: 2 mg Documented by: Tramadol HCl (Tramadol Hcl 50 Mg Tablet) 50 - 100 mg PO Q4H PRN PRN Reason: Moderate-Severe pain & Pre PT Stop: 01/14/21 15:36 Vitamin D (Cholecalciferol 1,000 Units 25 Mcg Tab) 2,000 units PO QAM JEANNETTE Stop: 01/15/21 08:59 Last Admin: 12/20/20 08:03 Dose: 2,000 units Documented by: Vitamin E (Tocopheryl, Dl-Alpha 400 Units Cap) 400 units PO QPM JEANNETTE Stop: 01/14/21 20:59 Last Admin: 12/19/20 20:16 Dose: 400 units Documented by: (1) Diabetes Diabetes mellitus complication status: without complication Diabetes mellitus long term care phlebotomist insulin use: without senior care use Diabetes mellitus type: type 2 Qualified Code(s): E11.9 - Type 2 diabetes mellitus without complications (2) CAD (coronary artery disease) Coronary Disease-Associated Artery/Lesion type: [place] artery [place] vs. transplanted heart: [place] heart
--- NOTE | 2020-12-20 16:30 | Orthopedic Progress Note ---
Date of Service December 20, 2020 Assessment & Plan (1) Neurogenic claudication due to lumbar spinal stenosis: Admission and Anticipated Discharge Date Admission Date: December 15, 2020 This time continue physical therapy consider discharge to rehab or home with home health tomorrow. Subjective Back pain controlled leg symptoms improved. Physical Exam Physical Exam: Patient is in the chair. Is comfortable. Is excellent strength testing. Results & Data ([facility]) Vital Signs (Past 12 Hours) Vital Signs Temp Pulse Resp BP BP Pulse Ox 12/20/20 15:10 37.4 C 57 L 16 147/78 H 98 12/20/20 07:23 36.9 C 53 L 16 159/76 H 95
[2020-12-20] MEDS: oxyCODONE HCL IR 5 MG TAB (IMMEDIATE RELEASE) PO PRN (20:38)
[2020-12-20] MEDS: ONDANSETRON 4 MG OD TAB PO PRN (20:38)
[2020-12-20] MEDS: CALCIUM 600MG + VIT D 400 IU TAB PO SCH (20:40)
[2020-12-20] MEDS: TERAZOSIN HCL 1 MG CAP PO SCH (20:41)
[2020-12-20] MEDS: TAMSULOSIN HCL 0.4 MG CAP PO SCH (20:41)
[2020-12-20] MEDS: TOCOPHERYL, DL-ALPHA 400 UNITS CAP PO SCH (20:43)
[2020-12-20] MEDS: DOCUSATE SODIUM/SENNA 50/8.6MG TAB PO SCH (20:43)
[2020-12-20] MEDS: PRAVASTATIN SOD 20 MG TAB PO SCH (20:44)
[2020-12-21] MEDS: POLYETHYLENE (MIRALAX) 17 GM PACK PO SCH ×2 (00:41→05:19)
[2020-12-21 07:10] VITALS: PULSE 53; TEMP 98.6; O2SAT 97
[2020-12-21] MEDS: ASPIRIN 81 MG ECTAB PO SCH (07:57)
[2020-12-21] MEDS: FERROUS SULFATE 325 MG TAB PO SCH (07:58)
[2020-12-21] MEDS: FUROSEMIDE 20 MG TAB PO SCH (07:58)
[2020-12-21] MEDS: amLODIPine BESYLATE 5 MG TAB PO SCH (07:59)
[2020-12-21] MEDS: MULTIVITAMIN TAB PO SCH (07:59)
[2020-12-21] MEDS: CHOLECALCIFEROL 1,000 UNITS 25 MCG TAB PO SCH (08:00)
[2020-12-21] MEDS: diphenhydrAMINE Capsule 25 MG CAP PO PRN (08:03)
[2020-12-21 12:12] VITALS: BP 159/64
--- NOTE | 2020-12-21 13:37 | Discharge Summary ---
Date of Service December 21, 2020 Admission HPI Per Admitting Provider This is a 75-year-old male presents with chronic persistent back and leg pain. After failing course of nonoperative care is here for surgical invention. Principal Diagnosis Lumbar spinal stenosis with neurogenic claudication Discharge Data Allergies Allergy/AdvReac Type Severity Reaction Status Date / Time amphotericin B Allergy Unknown DELIRIUM Verified 12/15/20 08:27 metoprolol AdvReac Intermediate Dizziness Verified 12/15/20 08:27 Consultations 12/15/20 15:37 Consult Case Management - Discharge Planning Routine Consult Hospitalist Routine 12/17/20 07:22 Consult Cardiology Routine Procedures Performed Operation Date: 12/15/20 09:35 Actual Procedures p L2-S1 Decompression Fusion, Spinal Cord Monitoring, Application of Bone Morphogenetic Protein - Mohsen Quesada DO Operation Date: 12/15/20 10:05 <No data on this case meets the specified criteria> Ordered Studies 12/15/20 09:35 FL fluoroscopy <1hr Routine FL lumbar spine 2-3V Routine Hospital Course (1) Neurogenic claudication due to lumbar spinal stenosis: Patient went multilevel lumbar decompression fusion tolerated this well was taken to the ICU postoperatively secondary to hypotension and bradycardia. He tolerated his stay in the ICU well was ultimately taken to the orthopedic floor continued to progress appropriately with physical therapy with improvement of leg symptoms of back pain. ELTON drain decreasing probably. Strength improving. Subsequently discharged to rehab. Discharge orders instructions from the chart for further review. Total Time Total Time Spent Total Time Spent (In Minutes): 20 minutes Discharge Plan Discharge Items Patient Disposition: Transfer Inpatient Rehab Fac Reason For Visit: Spinal Stenosis, Lumbar Region with Neurogenic Discharge Diagnosis: Lumbar spinal stenosis with neurogenic claudication Activity: As commented below Non-emergency contact: Primary Care Provider Call non-emergency contact if: you have any medication questions Follow-up/Referrals: Mohsen Quesada DO [Surgeon] - 12/29/20 11:30 am Darius Lee DO [Primary Care Provider] - Diet: Regular Addtl Attending Provider Instructions: ACTIVITY RECOMMENDATIONS: SELF CARE INSTRUCTIONS AFTER THORACIC/LUMBAR FUSIONS 1. You may walk to your tolerance. It is good exercise for your legs and back. Expect some back and intermittent leg aches and pains. 2. You may perform "counter-top" level activities (make a sandwich, benny with a project, etc.). 3. No bending or lifting of more than 10 pounds or back twisting of any nature (roll like a log when turning in bed). 4. You may ride in a car for 20-30 minutes at a time. No driving until after your first visit with your doctor. 5. Frequent changes of position and restricting sitting to 30 minutes at a time will help limit the amount of back spasms and stiffness you may experience. 6. You may discontinue the use of ambulatory aids (cane, crutches, etc.) once your strength and confidence allow. 7. You may occupational health nursing director the shower and let water strike your incision when you arrive home at least once daily. Do not take a tub bath, sit in a hot tub or go into a swimming pool until after your first recheck in the office. SPECIAL CARE INSTRUCTIONS: VERY IMPORTANT TO READ AND REVIEW A. Your surgical incision has been closed with a cosmetic suture under the skin that will dissolve in about 6 weeks. In 14 days, you can use a pair of clean scissors and cut the suture that is left outside of the skin at the ends of your incision. 1. The small skin tapes can be removed 7 days after surgery if they have not fallen off by that point. 2. You may keep the wound open to air as much as possible to promote healing after post-op day number 5 unless told otherwise by your doctor. 3. If you think the wound looks like it is becoming infected (redness or worsening drainage) and/or you are experiencing fever, chill or worsening back pain and muscle spasms, contact the office so that we may evaluate you as soon as possible. B. Complications are uncommon, but please contact us if you have any signs or symptoms of: 1. wound infection (fever higher than 102.5 degrees F, redness, separation of wound, drainage, or increasing pain from the incision) 2. blood clots in legs (pain, swelling, redness and warmth in legs) 3. urinary tract infection (fever higher than 102.5 degrees F, burning upon urination or increased frequency of urination) 4. nerve problems (inability to walk on your toes or heels, numbness, loss of bowel or bladder control) 5. any other symptoms that concern you C. Please call the office at if you have any concerns or questions about your operation or recovery. D. No smoking! Smoking drastically decreases the chance of a solid fusion. E. Do not take any anti-inflammatory medications (Indocin, Advil, Motrin, Aspirin, Naprosyn, etc.) as these may inhibit the chance of a solid fusion. Tylenol is okay to take for pain. MANAGING PAIN AFTER SPINAL SURGERY 1. Narcotic medication is intended for short-term use and will be provided for surgical pain. Surgical pain usually lasts for a period of 4-6 weeks. Narcotic medication includes Percocet, Vicodin, Darvocet, Tylenol #3 or Lortab. 2. Longer-term pain is more appropriately treated with non-narcotic medication such as Tylenol ES. 3. Muscle spasm is not appropriately treated with narcotics. Muscle relaxers such as Soma, Flexeril or Skelaxin can be used along with Tylenol ES. 4. Remember that we all live with some "aches and pains". This is not unusual or uncommon after an injury or as we get older. a. Back pain is expected and may include muscle spasms for 4 to 6 weeks after surgery. The pain should gradually improve. If the pain worsens for no apparent reason, please contact the office. b. Intermittent leg pain may also be experienced and should not be concerned about unless it worsens for no apparent reason. If so, please contact the office. 5. We will provide appropriate medication within the normal guidelines of their prescribed use. We will also be very cautious and aware of potential abuse and extended duration of patients' medication needs. a. Pain medications are for your comfort and to assist with sleep and rest so that the tissue can heal. They are not provided in order to return to normal activity and should not be used through the day. To do so or worsening pain at night can result from ongoing tissue damage and development of tolerance to the prescribed medicine. 6. Please allow 2-3 days to process refills. Prescriptions will not be mailed but must be picked up at the office. FOLLOW UP VISIT: Keep your scheduled follow-up appointment. Any questions, please call the office at . Pending Studies at Discharge: No Stand-Alone Forms: My [place], Smoking Cessation Skilled Items Patient informed of condition?: Yes DNR: No Discharge Level of Care: Acute rehab Communicable Disease: No Discharge Prognosis: Improving Lines: None Urinary Catheter: No Medications and DC Order Prescriptions: New tramadol 50 mg tablet 50 mg PO Q6H PRN (Reason: pain, moderate) Qty: 30 RF: 0 oxycodone 5 mg tablet 5 mg PO Q6H PRN (Reason: pain, severe) Qty: 20 RF: 0 Continued amlodipine 10 mg tablet 10 mg PO QAM RF: 0 aspirin [Adult Aspirin Regimen] 81 mg tablet,delayed release (DR/EC) 81 mg PO QAM RF: 0 calcium carbonate 600 mg calcium (1,500 mg) tablet 600 mg PO QPM RF: 0 multivitamin Tablet 1 tab PO QAM RF: 0 vitamin E (dl, acetate) 400 unit capsule 400 units PO QPM RF: 0 cholecalciferol (vitamin D3) 2,000 unit tablet 2,000 units PO QAM RF: 0 ferrous sulfate 325 mg (65 mg iron) tablet 325 mg PO QAM RF: 0 terazosin 2 mg tablet 2 mg PO QPM RF: 0 pravastatin 20 mg tablet 20 mg PO QPM RF: 0 furosemide 20 mg tablet 20 mg PO QAM RF: 0 tamsulosin 0.4 mg capsule 0.4 mg PO PM RF: 0 Discharge Orders: Discharge Order (Routine); Ordered 12/21/20 Ordered By: Mohsen Jordan/Other Patient Handouts: High Blood Sugar (Hyperglycemia), Hypoglycemia (Low Blood Sugar), Managing Type 2 Diabetes Admission Data Admit Date/Time: 12/15/20 15:30 Attending Provider: Mohsen Quesada Admit Provider: Mohsen Quesada Primary Care Provider: Darius Lee Other Providers: Bryon Burns ; Convo[facility],[facility] ; Martín Cerna ; Antoinette Espinoza. Other Interventions: Discharge Summary Assessment (RN) Last Done: 12/21/20 12:09
== END 2020-12-21 14:25 | DRG 460 ==
LOC: ASU 08:03 → 2S 15:30 → 1E 12-17 07:57 → 3N 12-19 16:00